=== PATIENT | male | born 1945 | race Caucasian/White ===

== ENCOUNTER 2023-07-08 10:35 | Inpatient (IN) | payer BC, OTHER ==
[~2023-07-08] VITALS: Ht 175.3 cm; Wt 110.2 kg
[2023-07-08 10:44] VITALS: PULSE 146; RESP 31; O2SAT 89
[2023-07-08] MEDS ORDERED: NITROGLYCERIN 0.4 MG SL TAB SL PRN ×2 (10:45→22:45)
[2023-07-08] MEDS: SODIUM CHLORIDE 0.9% 2,350 ML IV ONE (11:03)
[2023-07-08 11:21] LABS: Base Excess 3.1 mmol/L (-2.0-2.0)
[2023-07-08 11:31] LABS: Basophils # (auto) 0 10 ^3/uL (0-0.2); Basophils % (auto) 0.3 % (0.0-2.0); Eosinophils # (auto) 0.1 10 ^3/uL (0-0.8); Eosinophils % (auto) 0.5 % (0.0-7.0); Lymphocytes # (auto) 0.3 10 ^3/uL (0.4-5.4); Lymphocytes % (auto) 1.7 % (10.0-50.0); Mean Corpuscular Hemoglobin 29.8 pg (28.0-32.0); Mean Corpuscular Hgb Conc. 32.3 g/dL (32.0-36.0); Mean Corpuscular Volume 92.2 fL (80.0-100.0); Monocytes # (auto) 0.5 10 ^3/uL (0-1.3); Monocytes % (auto) 2.9 % (0.0-12.0); Neutrophils # (auto) 16.4 10 ^3/uL (1.6-8.6); Neutrophils % (auto) 94.6 % (37.0-80.0); Red Blood Cells 3.68 10^6/uL (4.5-5.90); Red Cell Distribution Width 15.3 % (11.8-14.3); White Blood Cell 17.3 10^3/uL (4.4-10.8)
[2023-07-08] MEDS: PHENYLEPHRINE IV 250 ML IV SCH (11:44)
[2023-07-08] MEDS: VANCOMYCIN 1GM/200ML 200 ML IV ONE (11:47)
[2023-07-08] MEDS ORDERED: CYCL-837 PO (11:49)
[2023-07-08] MEDS ORDERED: SIMV40TA18 PO (11:49)
[2023-07-08] MEDS ORDERED: METO25TA93 PO (11:49)
[2023-07-08] MEDS ORDERED: FAMO20TA10 PO (11:49)
[2023-07-08] MEDS ORDERED: ACET5SOL5 PO (11:49)
[2023-07-08] MEDS ORDERED: CLON0.1T PO (11:49)
[2023-07-08] MEDS ORDERED: LAMO200T34 PO (11:49)
[2023-07-08] MEDS ORDERED: AMLO1TAB23 PO (11:49)
[2023-07-08] MEDS ORDERED: FINA5TAB4 PO (11:49)
[2023-07-08] MEDS ORDERED: ESCI1TAB37 PO (11:49)
[2023-07-08] MEDS ORDERED: CHOL20007 PO (11:49)
[2023-07-08] MEDS ORDERED: PRED20TA2 PO (11:49)
[2023-07-08] MEDS ORDERED: ATOR40TA52 PO (11:49)
[2023-07-08] MEDS ORDERED: HYDR-4902 PO (11:49)
[2023-07-08] MEDS ORDERED: OLME20TA53 PO (11:49)
[2023-07-08] MEDS ORDERED: LINA5TAB PO (11:49)
[2023-07-08 11:52] LABS: Alanine Aminotransferase 28 U/L (7-40); Albumin 3.5 g/dL (3.2-4.8); Alkaline Phosphatase 63 U/L (46-116); Anion Gap 9 (5-15); Aspartate Aminotransferase 18 U/L (13-40); BUN/Creatinine Ratio 11.8 (10.0-20.0); Blood Urea Nitrogen 23 mg/dL (9-23); Calcium 8.9 mg/dL (8.5-10.1); Carbon Dioxide 25 mmol/L (20-30); Chloride 104 mmol/L (98-107); Glucose 218 mg/dL (74-106); Potassium 3.4 mmol/L (3.5-5.1); Sodium 138 mmol/L (136-145)
[2023-07-08 11:53] LABS: Creatine Kinase IFCC 48 U/L (46-171)
[2023-07-08 11:57] LABS: Urine Bacteria None Seen /hpf (None Seen)
[2023-07-08] MEDS ORDERED: ENOXAPARIN SOD 40 MG/0.4 ML SYRINGE SC SCH (11:58)
[2023-07-08 12:03] LABS: Urine Blood 1+ /uL (Negative); Urine Clarity Clear (Clear); Urine Color Light-Yellow (Yellow); Urine Protein, UAD 2+ (Negative); Urine Specific Gravity 1.009 (1.001-1.035); Urine Urobilinogen Normal (Negative); Urine WBC 2 /hpf (0 - 3); Urine pH 6.5 (5.0-9.0)
[2023-07-08 12:22] LABS: INR 1.12 (0.9-1.15); Prothrombin Time 11.8 sec (9.3-11.8)
[2023-07-08] MEDS: ACETAMINOPHEN 325 MG TAB PO PRN (12:43)
[2023-07-08] MEDS: PIPERACILLIN-TAZO 4.5GM 100 ML IV ONE (12:49)
[2023-07-08] MEDS ORDERED: PIPERACILLIN-TAZO 4.5GM 100 ML IV SCH (14:00)
[2023-07-08] MEDS: fentaNYL CITRATE 100 MCG/2 ML VL IV ONE (14:06)
[2023-07-08] MEDS: IOHEXOL 350 MG/ML 100ML IJ ONE (14:07)
[2023-07-08] MEDS: ONDANSETRON HCL 4 MG/2 ML VIAL IV ONE (17:25)
[2023-07-08] MEDS: HYDROmorphone HCL 2 MG/ML VL/or syr IV ONE (17:35)
[2023-07-08] MEDS: ACETAMINOPHEN 500 MG TAB PO ONE (20:02)
[2023-07-08] MEDS ORDERED: VANCOMYCIN 1GM/200ML 200 ML IV ONE (22:00)
[2023-07-08] MEDS ORDERED: ONDANSETRON HCL 4 MG/2 ML VIAL IV PRN (22:45)
[2023-07-08] MEDS ORDERED: MORPHINE SULFATE INJ 2 MG/ml SYRG IV PRN (22:45)
[2023-07-08] MEDS ORDERED: VANCOMYCIN PER PHARMACY 0 MG IV SCH (22:45)
[2023-07-08 23:06] LABS: Hemoglobin 10.1 g/dL (13.5-17.5); Mean Corpuscular Hemoglobin 29.8 pg (28.0-32.0); Mean Corpuscular Hgb Conc. 32.6 g/dL (32.0-36.0); Mean Corpuscular Volume 91.4 fL (80.0-100.0); Red Blood Cells 3.39 10^6/uL (4.5-5.90); Red Cell Distribution Width 15.7 % (11.8-14.3); White Blood Cell 22.4 10^3/uL (4.4-10.8)
[2023-07-08 23:09] LABS: Basophils % (manual) 0 (0.0-2.0); Blast Cells 0; Eosinophils % (manual) 0 (0-7); Metamyelocytes % 0; Myelocytes % 0; Promyelocytes % 0; Reactive Lymphocytes 0
[2023-07-08 23:24] LABS: Alanine Aminotransferase 26 U/L (7-40); Alkaline Phosphatase 57 U/L (46-116); Anion Gap 7 (5-15); Aspartate Aminotransferase 15 U/L (13-40); BUN/Creatinine Ratio 12.7 (10.0-20.0); Blood Urea Nitrogen 29 mg/dL (9-23); Calcium 8.3 mg/dL (8.7-10.4); Carbon Dioxide 26 mmol/L (20-30); Chloride 105 mmol/L (98-107); Glucose 258 mg/dL (74-106); Potassium 4.4 mmol/L (3.5-5.1); Sodium 138 mmol/L (136-145)
[2023-07-08 23:25] LABS: Albumin 3.3 g/dL (3.2-4.8); Bilirubin, Total 0.9 mg/dL (0.2-1.0); Total Protein 5.8 g/dL (5.7-8.2)
[2023-07-08 23:43] LABS: Band Neutrophils % (manual) 14; Lymphocytes % (manual) 1 (10.0-50.0); Monocytes % (manual) 2 (0-12); Platelet Estimate Adequate; RBC Morphology Normal
[2023-07-09] VITALS (17 sets, daily range): BP systolic 112–152; BP diastolic 54–84; PULSE 99–108; RESP 10–21; TEMP 98.4–100.2; O2SAT 93–98
[2023-07-09] MEDS: SODIUM CHLORIDE 0.9% 1,000 ML IV SCH ×2 (00:23→14:50)
[2023-07-09] MEDS: MORPHINE SULFATE INJ 2 MG/ml SYRG IV PRN (03:38)
[2023-07-09 06:13] LABS: Hematocrit 30.8 % (41.0-53.0); Hemoglobin 10.2 g/dL (13.5-17.5); Mean Corpuscular Hemoglobin 30.5 pg (28.0-32.0); Mean Corpuscular Hgb Conc. 33.1 g/dL (32.0-36.0); Mean Corpuscular Volume 92.1 fL (80.0-100.0); Red Blood Cells 3.34 10^6/uL (4.5-5.90); Red Cell Distribution Width 16.3 % (11.8-14.3); White Blood Cell 20.8 10^3/uL (4.4-10.8)
[2023-07-09 06:17] LABS: Basophils % (manual) 0 (0.0-2.0); Blast Cells 0; Eosinophils % (manual) 0 (0-7); Metamyelocytes % 0; Myelocytes % 0; Promyelocytes % 0; Reactive Lymphocytes 0
[2023-07-09] MEDS: PIPERACILLIN-TAZOB 3.375GM 100 ML IV SCH (06:20)
[2023-07-09 06:33] LABS: Alanine Aminotransferase 24 U/L (7-40); Albumin 3.2 g/dL (3.2-4.8); Alkaline Phosphatase 60 U/L (46-116); Anion Gap 8 (5-15); Aspartate Aminotransferase 16 U/L (13-40); BUN/Creatinine Ratio 13.1 (10.0-20.0); Bilirubin, Total 0.6 mg/dL (0.2-1.0); Blood Urea Nitrogen 33 mg/dL (9-23); Calcium 8.2 mg/dL (8.7-10.4); Carbon Dioxide 26 mmol/L (20-30); Chloride 106 mmol/L (98-107); Glucose 192 mg/dL (74-106); Sodium 140 mmol/L (136-145)
[2023-07-09 06:34] LABS: Total Protein 5.7 g/dL (5.7-8.2)
[2023-07-09 07:32] LABS: Band Neutrophils % (manual) 11; Lymphocytes % (manual) 4 (10.0-50.0); Monocytes % (manual) 3 (0-12); Platelet Estimate Adequate
[2023-07-09] MEDS: SODIUM CHLORIDE 0.9% 1,000 ML IV ONE (12:00)
[2023-07-09] MEDS: VANCOMYCIN 1GM/200ML 200 ML IV SCH (14:50)
[2023-07-09] MEDS: PANTOPRAZOLE 40 MG/10 ML VIAL INJ IV ONE (14:51)
[2023-07-10] VITALS (21 sets, daily range): BP systolic 104–169; BP diastolic 52–81; PULSE 95–111; RESP 9–20; TEMP 98–98.5; O2SAT 91–100
[2023-07-10 05:47] LABS: Basophils # (auto) 0.1 10 ^3/uL (0-0.2); Basophils % (auto) 0.3 % (0.0-2.0); Eosinophils # (auto) 0.5 10 ^3/uL (0-0.8); Eosinophils % (auto) 2.6 % (0.0-7.0); Hematocrit 31.8 % (41.0-53.0); Hemoglobin 10.4 g/dL (13.5-17.5); Lymphocytes # (auto) 0.2 10 ^3/uL (0.4-5.4); Lymphocytes % (auto) 1.1 % (10.0-50.0); Mean Corpuscular Hemoglobin 30.9 pg (28.0-32.0); Mean Corpuscular Hgb Conc. 32.7 g/dL (32.0-36.0); Mean Corpuscular Volume 94.3 fL (80.0-100.0); Monocytes # (auto) 0.3 10 ^3/uL (0-1.3); Monocytes % (auto) 1.4 % (0.0-12.0); Neutrophils # (auto) 18.1 10 ^3/uL (1.6-8.6); Neutrophils % (auto) 94.6 % (37.0-80.0); Nucleated Red Blood Cells % 0.1 %; Red Blood Cells 3.37 10^6/uL (4.5-5.90); Red Cell Distribution Width 16.4 % (11.8-14.3); White Blood Cell 19.2 10^3/uL (4.4-10.8)
[2023-07-10 05:59] LABS: Alanine Aminotransferase 17 U/L (7-40); Albumin 3.2 g/dL (3.2-4.8); Alkaline Phosphatase 70 U/L (46-116); Anion Gap 9 (5-15); Aspartate Aminotransferase 10 U/L (13-40); BUN/Creatinine Ratio 14.8 (10.0-20.0); Bilirubin, Total 0.7 mg/dL (0.2-1.0); Blood Urea Nitrogen 34 mg/dL (9-23); Calcium 8.2 mg/dL (8.7-10.4); Carbon Dioxide 26 mmol/L (20-30); Chloride 108 mmol/L (98-107); Glucose 148 mg/dL (74-106); Magnesium 1.6 mg/dL (1.6-2.6); Potassium 3.8 mmol/L (3.5-5.1); Sodium 143 mmol/L (136-145)
[2023-07-10] MEDS: PANTOPRAZOLE 40 MG/10 ML VIAL INJ IV SCH (10:41)
[2023-07-10] MEDS: MEROPENEM 1GM IVPB 50 ML IV ONE (11:40)
[2023-07-10 13:27] LABS: Erythrocyte Sedimentation Rate 111 mm/hr (0-20)
[2023-07-10] MEDS: VANCOMYCIN 1GM/200ML 200 ML IV SCH (13:52)
[2023-07-10] MEDS: MORPHINE SULFATE INJ 2 MG/ml SYRG IV PRN (17:24)
[2023-07-10] MEDS: MEROPENEM 1GM IVPB 50 ML IV SCH (22:15)
[2023-07-11] VITALS (15 sets, daily range): BP systolic 149–198; BP diastolic 67–85; PULSE 90–106; RESP 11–18; TEMP 98.1–99.7; O2SAT 86–97
[2023-07-11] MEDS: dilTIAZem 25 MG/5 ML VIAL IV ONE (04:19)
[2023-07-11 05:15] LABS: Basophils # (auto) 0.1 10 ^3/uL (0-0.2); Basophils % (auto) 0.3 % (0.0-2.0); Eosinophils # (auto) 0.7 10 ^3/uL (0-0.8); Eosinophils % (auto) 4.6 % (0.0-7.0); Hematocrit 28.9 % (41.0-53.0); Hemoglobin 9.5 g/dL (13.5-17.5); Lymphocytes # (auto) 0.3 10 ^3/uL (0.4-5.4); Lymphocytes % (auto) 2.3 % (10.0-50.0); Mean Corpuscular Hemoglobin 30.6 pg (28.0-32.0); Mean Corpuscular Hgb Conc. 32.9 g/dL (32.0-36.0); Mean Corpuscular Volume 92.9 fL (80.0-100.0); Monocytes # (auto) 0.3 10 ^3/uL (0-1.3); Monocytes % (auto) 1.9 % (0.0-12.0); Neutrophils # (auto) 13.6 10 ^3/uL (1.6-8.6); Neutrophils % (auto) 90.9 % (37.0-80.0); Red Blood Cells 3.11 10^6/uL (4.5-5.90)
[2023-07-11 05:29] LABS: Alanine Aminotransferase 16 U/L (7-40); Alkaline Phosphatase 69 U/L (46-116); Anion Gap 6 (5-15); Aspartate Aminotransferase 11 U/L (13-40); Blood Urea Nitrogen 34 mg/dL (9-23); Calcium 8.7 mg/dL (8.5-10.1); Carbon Dioxide 27 mmol/L (20-30); Chloride 110 mmol/L (98-107); Glucose 134 mg/dL (74-106); Magnesium 1.7 mg/dL (1.6-2.6); Potassium 3.4 mmol/L (3.5-5.1); Sodium 143 mmol/L (136-145)
[2023-07-11 05:30] LABS: Albumin 3.3 g/dL (3.2-4.8); Bilirubin, Total 0.5 mg/dL (0.2-1.0); Total Protein 5.9 g/dL (5.7-8.2)
[2023-07-11 07:06] LABS: Complement C3 163 mg/dL (82-167)
[2023-07-11] MEDS: hydrALAZINE HCL 20 MG/ML VL IV PRN (11:16)
[2023-07-11] MEDS: POTASSIUM CHL 20MEQ/100ML 100 ML IV ONE (11:16)
[2023-07-11 11:26] LABS: Basophils # (auto) 0 10 ^3/uL (0-0.2); Basophils % (auto) 0.3 % (0.0-2.0); Eosinophils # (auto) 0.7 10 ^3/uL (0-0.8); Eosinophils % (auto) 5.4 % (0.0-7.0); Hematocrit 29.2 % (41.0-53.0); Hemoglobin 9.3 g/dL (13.5-17.5); Lymphocytes # (auto) 0.3 10 ^3/uL (0.4-5.4); Lymphocytes % (auto) 2.8 % (10.0-50.0); Mean Corpuscular Hemoglobin 30.1 pg (28.0-32.0); Mean Corpuscular Hgb Conc. 31.9 g/dL (32.0-36.0); Mean Corpuscular Volume 94.4 fL (80.0-100.0); Monocytes # (auto) 0.3 10 ^3/uL (0-1.3); Monocytes % (auto) 2.4 % (0.0-12.0); Neutrophils # (auto) 11.2 10 ^3/uL (1.6-8.6); Neutrophils % (auto) 89.1 % (37.0-80.0); Nucleated Red Blood Cells % 0.1 %; Red Cell Distribution Width 15.9 % (11.8-14.3); White Blood Cell 12.6 10^3/uL (4.4-10.8)
[2023-07-11 11:36] LABS: Alanine Aminotransferase 16 U/L (7-40); Albumin 3.2 g/dL (3.2-4.8); Alkaline Phosphatase 66 U/L (46-116); Anion Gap 7 (5-15); Aspartate Aminotransferase 11 U/L (13-40); Blood Urea Nitrogen 27 mg/dL (9-23); Calcium 8.2 mg/dL (8.5-10.1); Carbon Dioxide 26 mmol/L (20-30); Chloride 111 mmol/L (98-107); Glucose 125 mg/dL (74-106); Potassium 3.2 mmol/L (3.5-5.1); Sodium 144 mmol/L (136-145)
[2023-07-11 11:37] LABS: Bilirubin, Total 0.6 mg/dL (0.2-1.0); Total Protein 5.6 g/dL (5.7-8.2)
[2023-07-11 15:49] LABS: Protein, Urine 200.9 mg/dL (0.0-11.9)
[2023-07-11 15:52] LABS: Creatinine, Urine 36.82 mg/dL (30.0-125.0); Urine Protein/Creatinine Ratio 5.46
[2023-07-11] MEDS: MORPHINE SULFATE 4 MG/ML SYR/VIAL IV PRN (23:21)
[2023-07-12] VITALS (8 sets, daily range): BP systolic 144–171; BP diastolic 69–89; PULSE 100–118; RESP 18–22; TEMP 97.5–98.8; O2SAT 96–98
[2023-07-12 10:26] LABS: Hematocrit 35.3 % (41.0-53.0); Hemoglobin 11.5 g/dL (13.5-17.5); Mean Corpuscular Hemoglobin 30.2 pg (28.0-32.0); Mean Corpuscular Hgb Conc. 32.5 g/dL (32.0-36.0); Mean Corpuscular Volume 92.9 fL (80.0-100.0); Red Blood Cells 3.81 10^6/uL (4.5-5.90); Red Cell Distribution Width 15.7 % (11.8-14.3); White Blood Cell 13.7 10^3/uL (4.4-10.8)
[2023-07-12 10:33] LABS: Basophils % (manual) 0 (0.0-2.0); Blast Cells 0; Metamyelocytes % 0; Myelocytes % 0; Promyelocytes % 0; Reactive Lymphocytes 0
[2023-07-12 10:40] LABS: Eosinophils % (manual) 5 (0-7); Lymphocytes % (manual) 4 (10.0-50.0); Monocytes % (manual) 6 (0-12)
[2023-07-12 10:41] LABS: Anisocytosis Slight; Band Neutrophils % (manual) 4; Platelet Estimate Adequate
[2023-07-12 10:57] LABS: Alanine Aminotransferase 15 U/L (7-40); Albumin 3.5 g/dL (3.2-4.8); Alkaline Phosphatase 72 U/L (46-116); Anion Gap 10 (5-15); Aspartate Aminotransferase 15 U/L (13-40); BUN/Creatinine Ratio 13.6 (10.0-20.0); Bilirubin, Total 0.8 mg/dL (0.2-1.0); Blood Urea Nitrogen 19 mg/dL (9-23); Calcium 8.8 mg/dL (8.5-10.1); Carbon Dioxide 23 mmol/L (20-30); Chloride 106 mmol/L (98-107); Glucose 114 mg/dL (74-106); Sodium 139 mmol/L (136-145); Total Protein 6.4 g/dL (5.7-8.2)
[2023-07-12 11:21] LABS: Magnesium 1.6 mg/dL (1.6-2.6)
[2023-07-12] MEDS: MAGNESIUM SULFATE 1GM/100ML 100 ML IV SCH (13:30)
[2023-07-12] MEDS: POTASSIUM CHL 20MEQ/100ML 100 ML IV SCH (13:38)
[2023-07-12 18:06] LABS: Antimyeloperoxidase (MPO) Ab <0.2 units (0.0-0.9); Antiproteinase 3 (PR-3) Ab <0.2 units (0.0-0.9)
[2023-07-12] MEDS: MEROPENEM 1GM IVPB 50 ML IV SCH (18:09)
[2023-07-13] VITALS (7 sets, daily range): BP systolic 117–179; BP diastolic 56–95; PULSE 95–120; RESP 18–22; TEMP 97.6–98; O2SAT 94–99
[2023-07-13 06:57] LABS: Alanine Aminotransferase 15 U/L (7-40); Albumin 3.1 g/dL (3.2-4.8); Alkaline Phosphatase 61 U/L (46-116); Anion Gap 11 (5-15); Aspartate Aminotransferase 15 U/L (13-40); BUN/Creatinine Ratio 15.9 (10.0-20.0); Bilirubin, Total 0.8 mg/dL (0.2-1.0); Blood Urea Nitrogen 21 mg/dL (9-23); Calcium 8.4 mg/dL (8.7-10.4); Carbon Dioxide 23 mmol/L (20-30); Chloride 105 mmol/L (98-107); Glucose 130 mg/dL (74-106); Magnesium 1.7 mg/dL (1.6-2.6); Sodium 139 mmol/L (136-145); Total Protein 5.9 g/dL (5.7-8.2)
[2023-07-13 06:58] LABS: Hematocrit 33.2 % (41.0-53.0); Hemoglobin 11.2 g/dL (13.5-17.5); Mean Corpuscular Hemoglobin 30.6 pg (28.0-32.0); Mean Corpuscular Hgb Conc. 33.6 g/dL (32.0-36.0); Mean Corpuscular Volume 90.9 fL (80.0-100.0); Red Blood Cells 3.65 10^6/uL (4.5-5.90); Red Cell Distribution Width 15.7 % (11.8-14.3); White Blood Cell 10.3 10^3/uL (4.4-10.8)
[2023-07-13 07:19] LABS: Basophils % (manual) 0 (0.0-2.0); Blast Cells 0; Myelocytes % 0; Promyelocytes % 0; Reactive Lymphocytes 0
[2023-07-13 08:17] LABS: Band Neutrophils % (manual) 8; Eosinophils % (manual) 4 (0-7); Lymphocytes % (manual) 11 (10.0-50.0); Metamyelocytes % 1; Monocytes % (manual) 5 (0-12)
[2023-07-13 08:18] LABS: Platelet Estimate Adequate
[2023-07-13] MEDS ORDERED: ENOXAPARIN SOD 40 MG/0.4 ML SYRINGE SC ONE (10:15)
[2023-07-13] MEDS: POTASSIUM CHL 20MEQ/100ML 100 ML IV SCH (13:00)
[2023-07-13 14:06] LABS: Cytoplasmic (C-ANCA) <1:20 titer (Neg:<1:20); Perinuclear (P-ANCA) <1:20 titer (Neg:<1:20)
[2023-07-13] MEDS: MELATONIN 5 MG TAB PO SCH (21:53)
[2023-07-14] VITALS (7 sets, daily range): BP systolic 110–176; BP diastolic 62–80; PULSE 101–121; RESP 18–21; TEMP 97.7–98.9; O2SAT 94–98
[2023-07-14 05:57] LABS: Hematocrit 31.2 % (41.0-53.0); Hemoglobin 10.6 g/dL (13.5-17.5); Mean Corpuscular Hemoglobin 31.5 pg (28.0-32.0); Mean Corpuscular Hgb Conc. 34.1 g/dL (32.0-36.0); Mean Corpuscular Volume 92.3 fL (80.0-100.0); Red Blood Cells 3.38 10^6/uL (4.5-5.90); Red Cell Distribution Width 15.5 % (11.8-14.3); White Blood Cell 9.8 10^3/uL (4.4-10.8)
[2023-07-14 05:59] LABS: Basophils % (manual) 0 (0.0-2.0); Blast Cells 0; Metamyelocytes % 0; Promyelocytes % 0; Reactive Lymphocytes 0
[2023-07-14 06:12] LABS: Alanine Aminotransferase 14 U/L (7-40); Alkaline Phosphatase 55 U/L (46-116); Anion Gap 13 (5-15); Blood Urea Nitrogen 17 mg/dL (9-23); Calcium 8.6 mg/dL (8.7-10.4); Carbon Dioxide 20 mmol/L (20-30); Chloride 107 mmol/L (98-107); Glucose 136 mg/dL (74-106); Magnesium 1.6 mg/dL (1.6-2.6); Potassium 3.1 mmol/L (3.5-5.1); Sodium 140 mmol/L (136-145)
[2023-07-14 06:13] LABS: Albumin 2.8 g/dL (3.2-4.8); Aspartate Aminotransferase 17 U/L (13-40); Bilirubin, Total 0.7 mg/dL (0.2-1.0); Total Protein 5.6 g/dL (5.7-8.2)
[2023-07-14 06:25] LABS: Band Neutrophils % (manual) 3; Eosinophils % (manual) 5 (0-7); Lymphocytes % (manual) 10 (10.0-50.0); Monocytes % (manual) 8 (0-12); Myelocytes % 1; Platelet Estimate Adequate
[2023-07-14] MEDS: POTASSIUM CHL 20MEQ/100ML 100 ML IV SCH (10:00)
[2023-07-14] MEDS ORDERED: ENOXAPARIN SOD 40 MG/0.4 ML SYRINGE SC SCH (10:00)
[2023-07-14] MEDS: MORPHINE SULFATE 4 MG/ML SYR/VIAL IV PRN (11:56)
[2023-07-14] MEDS: MAGNESIUM SULFATE 1GM/100ML 100 ML IV SCH (11:58)
[2023-07-14] MEDS ORDERED: POTASSIUM CHL 20MEQ/100ML 100 ML IV SCH (12:00)
[2023-07-15] VITALS (8 sets, daily range): BP systolic 135–171; BP diastolic 55–78; PULSE 103–115; RESP 17–22; TEMP 97.4–99.9; O2SAT 91–96
[2023-07-15 05:34] LABS: Hematocrit 30.3 % (41.0-53.0); Hemoglobin 10.2 g/dL (13.5-17.5); Mean Corpuscular Hemoglobin 30.8 pg (28.0-32.0); Mean Corpuscular Hgb Conc. 33.6 g/dL (32.0-36.0); Mean Corpuscular Volume 91.6 fL (80.0-100.0); Red Cell Distribution Width 15.6 % (11.8-14.3); White Blood Cell 8.5 10^3/uL (4.4-10.8)
[2023-07-15 05:46] LABS: Basophils % (manual) 0 (0.0-2.0); Blast Cells 0; Metamyelocytes % 0; Myelocytes % 0; Promyelocytes % 0
[2023-07-15 05:49] LABS: Alanine Aminotransferase 14 U/L (7-40); Albumin 2.8 g/dL (3.2-4.8); Alkaline Phosphatase 54 U/L (46-116); Anion Gap 9 (5-15); Aspartate Aminotransferase 18 U/L (13-40); BUN/Creatinine Ratio 13.3 (10.0-20.0); Blood Urea Nitrogen 16 mg/dL (9-23); Calcium 8.4 mg/dL (8.7-10.4); Carbon Dioxide 22 mmol/L (20-30); Chloride 107 mmol/L (98-107); Glucose 122 mg/dL (74-106); Magnesium 1.9 mg/dL (1.6-2.6); Potassium 3.1 mmol/L (3.5-5.1); Sodium 138 mmol/L (136-145)
[2023-07-15 05:50] LABS: Bilirubin, Total 0.8 mg/dL (0.2-1.0); Total Protein 5.5 g/dL (5.7-8.2)
[2023-07-15 07:26] LABS: Band Neutrophils % (manual) 3; Eosinophils % (manual) 7 (0-7); Lymphocytes % (manual) 9 (10.0-50.0); Monocytes % (manual) 4 (0-12); Reactive Lymphocytes 2
[2023-07-15 07:27] LABS: Anisocytosis Slight; Platelet Estimate Adequate
[2023-07-15] MEDS: POTASSIUM CHL 20MEQ/100ML 100 ML IV ONE (09:30)
[2023-07-15 10:57] LABS: INR 1.13 (0.9-1.15); Partial Thromboplastin Time 40.6 SEC (24.5-34.5); Prothrombin Time 11.9 sec (9.3-11.8)
[2023-07-15] MEDS: SOD CHL 0.9%/ KCL 20MEQ 1,000 ML IV SCH (14:29)
[2023-07-15 17:03] LABS: Hematocrit 34.3 % (41.0-53.0); Mean Corpuscular Hemoglobin 30.4 pg (28.0-32.0); Mean Corpuscular Hgb Conc. 32.2 g/dL (32.0-36.0); Mean Corpuscular Volume 94.6 fL (80.0-100.0); Red Blood Cells 3.63 10^6/uL (4.5-5.90); Red Cell Distribution Width 15.7 % (11.8-14.3); White Blood Cell 10.3 10^3/uL (4.4-10.8)
[2023-07-15 17:15] LABS: Chloride 106 mmol/L (98-107); Potassium 3.1 mmol/L (3.5-5.1); Sodium 137 mmol/L (136-145)
[2023-07-15 17:16] LABS: Anion Gap 8 (5-15); Calcium 8.5 mg/dL (8.5-10.1); Carbon Dioxide 23 mmol/L (20-30)
[2023-07-15 17:20] LABS: Basophils % (manual) 0 (0.0-2.0); Blast Cells 0; Promyelocytes % 0; Reactive Lymphocytes 0
[2023-07-15 17:21] LABS: Blood Urea Nitrogen 12 mg/dL (9-23); Glucose 117 mg/dL (74-106)
[2023-07-15 17:51] LABS: Anisocytosis Slight; Band Neutrophils % (manual) 5; Eosinophils % (manual) 4 (0-7); Lymphocytes % (manual) 6 (10.0-50.0); Macrocytosis Slight; Metamyelocytes % 2; Monocytes % (manual) 7 (0-12); Myelocytes % 2; Platelet Estimate Adequate
[2023-07-15] MEDS: HYDROmorphone HCL 2 MG/ML VL/or syr IV PRN (20:42)
[2023-07-16 08:00] VITALS: PULSE 108; PULSE 136; RESP 17; O2SAT 94
[2023-07-16] MEDS: GASTROGRAFIN 120 ML SOL ONE (08:56)
[2023-07-16 09:00] VITALS: BP 152/75; PULSE 107; RESP 20; TEMP 98.1; O2SAT 94
[2023-07-16 13:00] VITALS: BP 147/62; PULSE 66; RESP 20; TEMP 98.2; O2SAT 92
[2023-07-16 14:07] LABS: Hematocrit 31.3 % (41.0-53.0); Hemoglobin 11.1 g/dL (13.5-17.5); Mean Corpuscular Hemoglobin 32.3 pg (28.0-32.0); Mean Corpuscular Hgb Conc. 35.5 g/dL (32.0-36.0); Mean Corpuscular Volume 90.8 fL (80.0-100.0); Red Blood Cells 3.44 10^6/uL (4.5-5.90); Red Cell Distribution Width 15.3 % (11.8-14.3); White Blood Cell 12.2 10^3/uL (4.4-10.8)
[2023-07-16 14:11] LABS: Basophils % (manual) 0 (0.0-2.0); Blast Cells 0; Promyelocytes % 0; Reactive Lymphocytes 0
[2023-07-16 14:17] LABS: Alanine Aminotransferase 25 U/L (7-40); Albumin 3.2 g/dL (3.2-4.8); Alkaline Phosphatase 70 U/L (46-116); Anion Gap 11 (5-15); Aspartate Aminotransferase 38 U/L (13-40); BUN/Creatinine Ratio 12.4 (10.0-20.0); Blood Urea Nitrogen 15 mg/dL (9-23); Calcium 9.1 mg/dL (8.5-10.1); Carbon Dioxide 26 mmol/L (20-30); Chloride 103 mmol/L (98-107); Glucose 124 mg/dL (74-106); Magnesium 1.6 mg/dL (1.6-2.6); Potassium 2.9 mmol/L (3.5-5.1); Sodium 140 mmol/L (136-145)
[2023-07-16 14:18] LABS: Total Protein 6.4 g/dL (5.7-8.2)
[2023-07-16 14:19] LABS: Band Neutrophils % (manual) 4; Eosinophils % (manual) 5 (0-7); Lymphocytes % (manual) 9 (10.0-50.0); Metamyelocytes % 1; Monocytes % (manual) 7 (0-12); Myelocytes % 1
[2023-07-16 14:20] LABS: Anisocytosis Slight
[2023-07-16 14:21] LABS: Platelet Estimate Adequate
[2023-07-16] MEDS: VANCOMYCIN 1GM/200ML 200 ML IV SCH (15:18)
[2023-07-16 17:00] VITALS: BP 125/68; PULSE 107; RESP 20; TEMP 98.2; O2SAT 95
[2023-07-16 20:00] VITALS: PULSE 108
[2023-07-16 21:37] VITALS: BP 167/79; PULSE 120; RESP 19; TEMP 98.6; O2SAT 92
[2023-07-17] VITALS (13 sets, daily range): BP systolic 104–161; BP diastolic 59–85; PULSE 68–127; RESP 15–21; TEMP 97.3–98.6; O2SAT 91–99
[2023-07-17 06:08] LABS: Hematocrit 29.3 % (41.0-53.0); Hemoglobin 9.6 g/dL (13.5-17.5); Mean Corpuscular Hemoglobin 29.9 pg (28.0-32.0); Mean Corpuscular Hgb Conc. 32.9 g/dL (32.0-36.0); Mean Corpuscular Volume 90.8 fL (80.0-100.0); Red Blood Cells 3.22 10^6/uL (4.5-5.90); Red Cell Distribution Width 15.3 % (11.8-14.3); White Blood Cell 11.2 10^3/uL (4.4-10.8)
[2023-07-17 06:25] LABS: Band Neutrophils % (manual) 0; Basophils % (manual) 0 (0.0-2.0); Blast Cells 0; Metamyelocytes % 0; Promyelocytes % 0; Reactive Lymphocytes 0
[2023-07-17 06:30] LABS: Alanine Aminotransferase 25 U/L (7-40); Albumin 2.7 g/dL (3.2-4.8); Alkaline Phosphatase 60 U/L (46-116); Anion Gap 12 (5-15); Aspartate Aminotransferase 34 U/L (13-40); Bilirubin, Total 0.8 mg/dL (0.2-1.0); Blood Urea Nitrogen 14 mg/dL (9-23); Calcium 8.5 mg/dL (8.7-10.4); Carbon Dioxide 24 mmol/L (20-30); Chloride 101 mmol/L (98-107); Glucose 117 mg/dL (74-106); Magnesium 1.5 mg/dL (1.6-2.6); Potassium 2.7 mmol/L (3.5-5.1); Sodium 137 mmol/L (136-145)
[2023-07-17 06:31] LABS: Total Protein 5.6 g/dL (5.7-8.2)
[2023-07-17 08:32] LABS: Eosinophils % (manual) 1 (0-7); Lymphocytes % (manual) 7 (10.0-50.0); Monocytes % (manual) 4 (0-12); Myelocytes % 1; Platelet Estimate Adequate
[2023-07-17] MEDS: MAGNESIUM SULFATE 1GM/100ML 100 ML IV SCH (10:13)
[2023-07-17] MEDS ORDERED: LIDOCAINE 2%HCL (LOCAL ANESTH.) INJ 20ML MDV ONE (12:56)
[2023-07-17] MEDS ORDERED: fentaNYL CITRATE 100 MCG/2 ML VL ONE (13:05)
[2023-07-17] MEDS ORDERED: MIDAZOLAM HCL 2MG/2ML 2ml VIAL (1mg/ml) ONE (13:06)
[2023-07-17] MEDS ORDERED: HEPARIN SODIUM (PORCINE) 5000 UNITS/ML 1ML VIAL ONE (13:39)
[2023-07-17] MEDS ORDERED: MAGNESIUM SULFATE 1GM/100ML 100 ML IV ONE (16:09)
[2023-07-17] MEDS: POTASSIUM CHL 20MEQ/100ML 100 ML IV ONE (17:20)
[2023-07-18] VITALS (8 sets, daily range): BP systolic 126–163; BP diastolic 66–88; PULSE 84–122; RESP 18–21; TEMP 97.4–99.3; O2SAT 91–98
[2023-07-18 06:34] LABS: Basophils # (auto) 0.1 10 ^3/uL (0-0.2); Basophils % (auto) 0.8 % (0.0-2.0); Eosinophils # (auto) 0.2 10 ^3/uL (0-0.8); Eosinophils % (auto) 3.3 % (0.0-7.0); Hematocrit 26.9 % (41.0-53.0); Hemoglobin 9.1 g/dL (13.5-17.5); Lymphocytes # (auto) 0.7 10 ^3/uL (0.4-5.4); Lymphocytes % (auto) 9.9 % (10.0-50.0); Mean Corpuscular Hemoglobin 30.9 pg (28.0-32.0); Mean Corpuscular Hgb Conc. 33.9 g/dL (32.0-36.0); Mean Corpuscular Volume 90.9 fL (80.0-100.0); Monocytes # (auto) 0.5 10 ^3/uL (0-1.3); Monocytes % (auto) 6.9 % (0.0-12.0); Neutrophils # (auto) 5.8 10 ^3/uL (1.6-8.6); Neutrophils % (auto) 79.1 % (37.0-80.0); Nucleated Red Blood Cells % 0.1 %; Red Blood Cells 2.96 10^6/uL (4.5-5.90); Red Cell Distribution Width 15.3 % (11.8-14.3); White Blood Cell 7.3 10^3/uL (4.4-10.8)
[2023-07-18 06:37] LABS: Alanine Aminotransferase 26 U/L (7-40); Albumin 2.6 g/dL (3.2-4.8); Alkaline Phosphatase 58 U/L (46-116); Anion Gap 5 (5-15); Aspartate Aminotransferase 31 U/L (13-40); BUN/Creatinine Ratio 10.4 (10.0-20.0); Bilirubin, Total 0.6 mg/dL (0.2-1.0); Blood Urea Nitrogen 12 mg/dL (9-23); Calcium 8.3 mg/dL (8.7-10.4); Carbon Dioxide 27 mmol/L (20-30); Chloride 104 mmol/L (98-107); Glucose 147 mg/dL (74-106); Magnesium 1.7 mg/dL (1.6-2.6); Potassium 2.7 mmol/L (3.5-5.1); Sodium 136 mmol/L (136-145); Total Protein 5.5 g/dL (5.7-8.2)
[2023-07-18] MEDS: SOD CHL 0.9%/ KCL 40MEQ 1,000 ML IV SCH (09:45)
[2023-07-18] MEDS: MAGNESIUM OXIDE 400 MG TAB PO SCH (12:38)
[2023-07-18] MEDS: POTASSIUM CHL 20 Meq TABLET PO ONE (12:38)
[2023-07-19 05:00] VITALS: BP 153/75; PULSE 119; RESP 20; TEMP 98.3; O2SAT 92
[2023-07-19 06:06] LABS: Basophils # (auto) 0.1 10 ^3/uL (0-0.2); Basophils % (auto) 1.1 % (0.0-2.0); Eosinophils # (auto) 0.3 10 ^3/uL (0-0.8); Hematocrit 29.4 % (41.0-53.0); Hemoglobin 9.7 g/dL (13.5-17.5); Lymphocytes # (auto) 0.8 10 ^3/uL (0.4-5.4); Lymphocytes % (auto) 11.6 % (10.0-50.0); Mean Corpuscular Hemoglobin 30.6 pg (28.0-32.0); Mean Corpuscular Hgb Conc. 33.1 g/dL (32.0-36.0); Mean Corpuscular Volume 92.4 fL (80.0-100.0); Monocytes # (auto) 0.5 10 ^3/uL (0-1.3); Monocytes % (auto) 7.3 % (0.0-12.0); Neutrophils # (auto) 5.3 10 ^3/uL (1.6-8.6); Red Blood Cells 3.18 10^6/uL (4.5-5.90)
[2023-07-19 06:25] LABS: Alanine Aminotransferase 25 U/L (7-40); Albumin 2.9 g/dL (3.2-4.8); Alkaline Phosphatase 67 U/L (46-116); Anion Gap 7 (5-15); Aspartate Aminotransferase 26 U/L (13-40); BUN/Creatinine Ratio 8.3 (10.0-20.0); Blood Urea Nitrogen 10 mg/dL (9-23); Calcium 8.5 mg/dL (8.5-10.1); Carbon Dioxide 25 mmol/L (20-30); Chloride 107 mmol/L (98-107); Glucose 154 mg/dL (74-106); Magnesium 1.6 mg/dL (1.6-2.6); Potassium 3.2 mmol/L (3.5-5.1); Sodium 139 mmol/L (136-145)
[2023-07-19 06:26] LABS: Bilirubin, Total 0.6 mg/dL (0.2-1.0); Total Protein 5.9 g/dL (5.7-8.2)
[2023-07-19 08:00] VITALS: PULSE 108
[2023-07-19 09:00] VITALS: BP 179/84; PULSE 124; RESP 18; TEMP 98.3; O2SAT 93
[2023-07-19] MEDS: POTASSIUM CHL 20 Meq TABLET PO ONE (10:30)
[2023-07-19] MEDS: VANCOMYCIN 1GM/200ML 200 ML IV SCH (11:00)
[2023-07-19 13:00] VITALS: BP 153/73; PULSE 109; RESP 18; TEMP 98.9; O2SAT 92
[2023-07-19 15:18] VITALS: BP 143/78; PULSE 109; RESP 18
== END 2023-07-19 16:21 | disposition home or self-care (01) | DRG 871 ==
LOC: EDBD 10:35 → ER 10:35 → TELE 22:45 → DOU IN ICU 07-09 06:18 → TELE-CENTR 07-11 23:41
PROVIDERS: ADMIT Nurse Practitioner; ATTEND Internal Medicine Geriatric Medicine
PROC: 06JYXZZ Inspection of Lower Vein, External Approach (ICD-10-PCS; principal; 2023-07-15)
PROC: 0JH63XZ Insertion of Tunneled Vascular Access Device into Chest Subcutaneous Tissue and Fascia, Percutaneous Approach (ICD-10-PCS; 2023-07-17)
PROC: 02HV33Z Insertion of Infusion Device into Superior Vena Cava, Percutaneous Approach (ICD-10-PCS; 2023-07-17)
PROC: B518ZZA Fluoroscopy of Superior Vena Cava, Guidance (ICD-10-PCS; 2023-07-17)
PROC: B548ZZA Ultrasonography of Superior Vena Cava, Guidance (ICD-10-PCS; 2023-07-17)
DX: A41.9 Sepsis, unspecified organism (principal); G93.41 Metabolic encephalopathy; K63.1 Perforation of intestine (nontraumatic); N17.0 Acute kidney failure with tubular necrosis; J96.01 Acute respiratory failure with hypoxia; N13.2 Hydronephrosis with renal and ureteral calculous obstruction; I13.0 Hypertensive heart and chronic kidney disease with heart failure and stage 1 through stage 4 chronic kidney disease, or unspecified chronic kidney disease; K50.90 Crohn's disease, unspecified, without complications; I50.9 Heart failure, unspecified; R65.20 Severe sepsis without septic shock; E66.01 Morbid (severe) obesity due to excess calories; E78.5 Hyperlipidemia, unspecified; E87.6 Hypokalemia; M35.3 Polymyalgia rheumatica; N18.30 Chronic kidney disease, stage 3 unspecified; E11.22 Type 2 diabetes mellitus with diabetic chronic kidney disease; I45.10 Unspecified right bundle-branch block; Z79.899 Other long term (current) drug therapy; Z79.1 Long term (current) use of non-steroidal anti-inflammatories (NSAID); Z87.442 Personal history of urinary calculi; Z90.49 Acquired absence of other specified parts of digestive tract; Z79.52 Long term (current) use of systemic steroids; Z68.35 Body mass index [BMI] 35.0-35.9, adult
CPT/HCPCS: 36415; 36558; 36600; 70450; 71045; 71260; 73200; 74176; 74177; 74250; 80048; 80053; 80202; 81001; 82550; 82570; 82805; 83516; 83520; 83605; 83735; 83880; 84156; 84484; 85007; 85025; 85027; 85379; 85384; 85610; 85652; 85730; 86160; 86225; 86235; 86256; 86703; 86850; 86900; 86901; 87040; 87077; 87086; 87186; 87205; 93005; 93306; 93971; 96365; 96367; 97110; 97163; 99152; 99291; C1894; C9113; G0378; J2185; J2250; J2405; J2543; J3480

== ENCOUNTER 2023-07-25 19:44 | Inpatient (IN) | payer BC, OTHER ==
[~2023-07-25] VITALS: Ht 188 cm; Wt 109.9 kg
[~2023-07-25 19:44] MED LIST: ACET5SOL5 PO; AMLO1TAB23 PO; ATOR40TA52 PO; CHOL20007 PO; CLON0.1T PO; CYCL-837 PO; ESCI1TAB37 PO; FAMO20TA10 PO; FINA5TAB4 PO; HYDR-4902 PO; LAMO200T34 PO; LINA5TAB PO; METO25TA93 PO; OLME20TA53 PO; SIMV40TA18 PO
[2023-07-25] MEDS: SODIUM CHLORIDE 0.9% 1,000 ML IV ONE (20:00)
[2023-07-25 20:44] LABS: Chloride 106 mmol/L (98-107); Potassium 3.7 mmol/L (3.5-5.1); Sodium 140 mmol/L (136-145)
[2023-07-25 20:45] LABS: Anion Gap 7 (5-15); Calcium 8.8 mg/dL (8.7-10.4); Carbon Dioxide 27 mmol/L (20-30)
[2023-07-25 20:50] LABS: BUN/Creatinine Ratio 7.9 (10.0-20.0); Blood Urea Nitrogen 16 mg/dL (9-23); Glucose 185 mg/dL (74-106)
[2023-07-25 21:21] LABS: Basophils # (auto) 0.1 10 ^3/uL (0-0.2); Basophils % (auto) 0.4 % (0.0-2.0); Eosinophils # (auto) 0 10 ^3/uL (0-0.8); Hematocrit 26.9 % (41.0-53.0); Hemoglobin 8.7 g/dL (13.5-17.5); Lymphocytes # (auto) 0.8 10 ^3/uL (0.4-5.4); Lymphocytes % (auto) 3.9 % (10.0-50.0); Mean Corpuscular Hemoglobin 29.7 pg (28.0-32.0); Mean Corpuscular Hgb Conc. 32.3 g/dL (32.0-36.0); Mean Corpuscular Volume 92.1 fL (80.0-100.0); Monocytes # (auto) 1.1 10 ^3/uL (0-1.3); Monocytes % (auto) 5.3 % (0.0-12.0); Neutrophils # (auto) 19.5 10 ^3/uL (1.6-8.6); Neutrophils % (auto) 90.4 % (37.0-80.0); Nucleated Red Blood Cells % 0.1 %; Red Blood Cells 2.92 10^6/uL (4.5-5.90); Red Cell Distribution Width 15.9 % (11.8-14.3); White Blood Cell 21.6 10^3/uL (4.4-10.8)
[2023-07-25] MEDS: PIPERACILLIN-TAZOB 3.375GM 100 ML IV ONE (21:39)
[2023-07-25 21:44] LABS: Urine Bacteria None Seen /hpf (None Seen)
[2023-07-25 21:56] LABS: Urine Blood 2+ /uL (Negative); Urine Clarity Clear (Clear); Urine Color Light-Yellow (Yellow); Urine Protein, UAD 1+ (Negative); Urine Specific Gravity 1.013 (1.001-1.035); Urine Urobilinogen Normal (Negative); Urine WBC 1 /hpf (0 - 3)
[2023-07-25] MEDS: ACETAMINOPHEN 650 MG RECT SUPP PR ONE (22:05)
[2023-07-25] MEDS ORDERED: DOCUSATE SOD 100 MG CAP PO PRN (22:15)
[2023-07-25] MEDS ORDERED: VANCOMYCIN PER PHARMACY 0 MG IV SCH (22:15)
[2023-07-25] MEDS: AZITHROMYCIN 500MG/ 250ML 250 ML IV ONE (22:28)
[2023-07-25] MEDS: LORazepam 2MG/ML-1ML VIAL IV ONE (22:56)
[2023-07-25] MEDS ORDERED: NITROGLYCERIN 0.4 MG SL TAB SL PRN (23:00)
[2023-07-25] MEDS: VANCOMYCIN 1GM/200ML 200 ML IV ONE (23:46)
[2023-07-26] MEDS: ACETAMINOPHEN IV 1000 MG/100ML (10MG/ML) IV ONE (01:28)
[2023-07-26 02:46] VITALS: PULSE 131; RESP 14; O2SAT 92
[2023-07-26 06:03] LABS: Hemoglobin 7.9 g/dL (13.5-17.5); Mean Corpuscular Volume 92.5 fL (80.0-100.0)
[2023-07-26 06:06] LABS: Hematocrit 24.6 % (41.0-53.0); Mean Corpuscular Hemoglobin 29.8 pg (28.0-32.0); Mean Corpuscular Hgb Conc. 32.2 g/dL (32.0-36.0); Red Blood Cells 2.65 10^6/uL (4.5-5.90); Red Cell Distribution Width 16.1 % (11.8-14.3); White Blood Cell 24.4 10^3/uL (4.4-10.8)
[2023-07-26 06:15] LABS: Basophils % (manual) 0 (0.0-2.0); Blast Cells 0; Eosinophils % (manual) 0 (0-7); Metamyelocytes % 0; Myelocytes % 0; Promyelocytes % 0; Reactive Lymphocytes 0
[2023-07-26] MEDS: SODIUM CHLOR 0.9% PF (SALINE LOCK) 10ML VIAL/SYR IV SCH (06:17)
[2023-07-26] MEDS: SODIUM CHLORIDE 0.9% 2,450 ML IV ONE (06:18)
[2023-07-26 06:27] LABS: Alanine Aminotransferase 28 U/L (7-40); Albumin 2.7 g/dL (3.2-4.8); Alkaline Phosphatase 69 U/L (46-116); Anion Gap 10 (5-15); Aspartate Aminotransferase 66 U/L (13-40); BUN/Creatinine Ratio 8.5 (10.0-20.0); Bilirubin, Total 1.9 mg/dL (0.2-1.0); Blood Urea Nitrogen 20 mg/dL (9-23); Calcium 8.3 mg/dL (8.5-10.1); Carbon Dioxide 25 mmol/L (20-30); Chloride 105 mmol/L (98-107); Glucose 192 mg/dL (74-106); Potassium 3.6 mmol/L (3.5-5.1); Sodium 140 mmol/L (136-145); Total Protein 6.1 g/dL (5.7-8.2)
[2023-07-26 06:36] LABS: Band Neutrophils % (manual) 34; Lymphocytes % (manual) 1 (10.0-50.0); Monocytes % (manual) 2 (0-12); Platelet Estimate Adequate
[2023-07-26] MEDS: LORazepam 2MG/ML-1ML VIAL IV PRN (08:00)
[2023-07-26 08:31] VITALS: RESP 20; O2SAT 98
[2023-07-26] MEDS: MULTIPLE VITAMIN TAB PO SCH (09:41)
[2023-07-26] MEDS: FAMOTIDINE (10MG/ML) 2ML VL IV SCH (09:42)
[2023-07-26] MEDS: HEPARIN SODIUM (PORCINE) 5000 UNITS/ML 1ML VIAL SC SCH (09:42)
[2023-07-26] MEDS: MORPHINE SULFATE INJ 2 MG/ml SYRG IV PRN (10:41)
[2023-07-26] MEDS: MEROPENEM 1GM IVPB 50 ML IV SCH (13:12)
[2023-07-26] MEDS: SODIUM CHLORIDE 0.9% 1,000 ML IV SCH (14:00)
[2023-07-26] MEDS: ATORVASTATIN 20 MG TAB PO SCH (21:30)
[2023-07-26] MEDS: LINEZOLID 600MG/300ML 300 ML IV SCH (21:44)
[2023-07-27 06:05] LABS: Basophils # (auto) 0.1 10 ^3/uL (0-0.2); Hemoglobin 7.8 g/dL (13.5-17.5); Monocytes # (auto) 0.7 10 ^3/uL (0-1.3)
[2023-07-27 06:07] LABS: Basophils % (auto) 0.4 % (0.0-2.0); Eosinophils # (auto) 0.1 10 ^3/uL (0-0.8); Eosinophils % (auto) 0.3 % (0.0-7.0); Hematocrit 23.9 % (41.0-53.0); Lymphocytes # (auto) 0.6 10 ^3/uL (0.4-5.4); Lymphocytes % (auto) 2.4 % (10.0-50.0); Mean Corpuscular Hemoglobin 30.1 pg (28.0-32.0); Mean Corpuscular Hgb Conc. 32.8 g/dL (32.0-36.0); Mean Corpuscular Volume 91.7 fL (80.0-100.0); Neutrophils # (auto) 23.1 10 ^3/uL (1.6-8.6); Neutrophils % (auto) 93.9 % (37.0-80.0); Red Cell Distribution Width 16.3 % (11.8-14.3); White Blood Cell 24.5 10^3/uL (4.4-10.8)
[2023-07-27 06:13] LABS: Calcium 7.6 mg/dL (8.7-10.4); Chloride 111 mmol/L (98-107); Potassium 3.5 mmol/L (3.5-5.1); Sodium 143 mmol/L (136-145)
[2023-07-27 06:14] LABS: Anion Gap 8 (5-15); Carbon Dioxide 24 mmol/L (20-30)
[2023-07-27 06:16] LABS: % Iron Saturation 8.7 % (20-55)
[2023-07-27 06:19] LABS: BUN/Creatinine Ratio 11.9 (10.0-20.0); Blood Urea Nitrogen 28 mg/dL (9-23); Glucose 144 mg/dL (74-106)
[2023-07-27 07:30] VITALS: PULSE 136; RESP 25; O2SAT 94
[2023-07-27] MEDS: ACETAMINOPHEN 650 MG RECT SUPP PR ONE (07:57)
[2023-07-27] MEDS: LACTATED RINGER'S 1,000 ML IV SCH (11:36)
[2023-07-27] MEDS: EPOETIN ALFA-EPBX 10,000 UNIT/1ML VIAL SC SCH (11:40)
[2023-07-27 13:54] LABS: Base Excess -1.5 mmol/L (-2.0-2.0)
[2023-07-27] MEDS: POTASSIUM CHL 20MEQ/100ML 100 ML IV ONE (14:20)
[2023-07-27] MEDS: MAGNESIUM SULFATE 1GM/100ML 100 ML IV SCH (16:44)
[2023-07-28] VITALS (10 sets, daily range): BP systolic 119–161; BP diastolic 58–102; PULSE 107–125; RESP 12–38; TEMP 99.7–100.8; O2SAT 95–100
[2023-07-28 06:43] LABS: Anion Gap 5 (5-15); Carbon Dioxide 27 mmol/L (20-30); Chloride 112 mmol/L (98-107); Potassium 3.3 mmol/L (3.5-5.1); Sodium 144 mmol/L (136-145)
[2023-07-28 06:45] LABS: Calcium 7.9 mg/dL (8.7-10.4)
[2023-07-28 06:49] LABS: Glucose 138 mg/dL (74-106)
[2023-07-28 06:50] LABS: Blood Urea Nitrogen 21 mg/dL (9-23); Magnesium 1.8 mg/dL (1.6-2.6)
[2023-07-28 08:06] LABS: PSA Free 0.07 ng/mL; Prostate Specific Antigen 0.3 ng/mL (0.0-4.0)
[2023-07-28] MEDS: POTASSIUM CHL 20MEQ/100ML 100 ML IV SCH (09:15)
[2023-07-28] MEDS: MAGNESIUM SULFATE 1GM/100ML 100 ML IV ONE (09:15)
[2023-07-28 09:27] LABS: Basophils # (auto) 0.1 10 ^3/uL (0-0.2); Eosinophils # (auto) 0.2 10 ^3/uL (0-0.8); Lymphocytes # (auto) 0.8 10 ^3/uL (0.4-5.4); Lymphocytes % (auto) 3.8 % (10.0-50.0)
[2023-07-28 09:28] LABS: Basophils % (auto) 0.6 % (0.0-2.0); Hematocrit 25.3 % (41.0-53.0); Mean Corpuscular Hemoglobin 29.6 pg (28.0-32.0); Mean Corpuscular Hgb Conc. 31.7 g/dL (32.0-36.0); Mean Corpuscular Volume 93.3 fL (80.0-100.0); Monocytes # (auto) 0.7 10 ^3/uL (0-1.3); Monocytes % (auto) 3.1 % (0.0-12.0); Neutrophils # (auto) 20.2 10 ^3/uL (1.6-8.6); Neutrophils % (auto) 91.5 % (37.0-80.0); Red Blood Cells 2.71 10^6/uL (4.5-5.90); Red Cell Distribution Width 16.1 % (11.8-14.3); White Blood Cell 22.1 10^3/uL (4.4-10.8)
[2023-07-28] MEDS ORDERED: FAMOTIDINE (10MG/ML) 2ML VL IV SCH (10:00)
[2023-07-28] MEDS: FAMOTIDINE (10MG/ML) 2ML VL IV SCH (10:41)
[2023-07-28] MEDS: MEROPENEM 1GM IVPB 50 ML IV SCH (13:32)
[2023-07-28] MEDS ORDERED: CLINIMIX PER PHARMACY 0 ML IV SCH (18:00)
[2023-07-28] MEDS: FUROSEMIDE 20 MG/2 ML VIAL IV ONE (18:00)
[2023-07-28] MEDS: METOPROLOL TARTRATE 1MG/1ML-5ML VIAL IV ONE (18:45)
[2023-07-28] MEDS ORDERED: LABETALOL HCL 5 MG/ML 4ML SYRINGE IV PRN (18:45)
[2023-07-28 19:07] LABS: Basophils # (auto) 0.1 10 ^3/uL (0-0.2); Basophils % (auto) 0.3 % (0.0-2.0); Eosinophils # (auto) 0.3 10 ^3/uL (0-0.8); Eosinophils % (auto) 1.4 % (0.0-7.0); Hematocrit 27.8 % (41.0-53.0); Hemoglobin 8.9 g/dL (13.5-17.5); Lymphocytes # (auto) 0.8 10 ^3/uL (0.4-5.4); Lymphocytes % (auto) 4.6 % (10.0-50.0); Mean Corpuscular Hemoglobin 29.5 pg (28.0-32.0); Mean Corpuscular Hgb Conc. 32.2 g/dL (32.0-36.0); Mean Corpuscular Volume 91.7 fL (80.0-100.0); Monocytes # (auto) 0.7 10 ^3/uL (0-1.3); Monocytes % (auto) 3.9 % (0.0-12.0); Neutrophils # (auto) 15.8 10 ^3/uL (1.6-8.6); Neutrophils % (auto) 89.8 % (37.0-80.0); Red Blood Cells 3.03 10^6/uL (4.5-5.90); Red Cell Distribution Width 15.6 % (11.8-14.3); White Blood Cell 17.6 10^3/uL (4.4-10.8)
[2023-07-29] VITALS (10 sets, daily range): BP systolic 115–149; BP diastolic 57–78; PULSE 86–125; RESP 11–22; TEMP 99.1–101.3; O2SAT 90–100
[2023-07-29 05:37] LABS: Hematocrit 26.3 % (41.0-53.0); Hemoglobin 8.6 g/dL (13.5-17.5); Mean Corpuscular Hemoglobin 30.2 pg (28.0-32.0); Mean Corpuscular Hgb Conc. 32.6 g/dL (32.0-36.0); Mean Corpuscular Volume 92.6 fL (80.0-100.0); Red Blood Cells 2.84 10^6/uL (4.5-5.90); Red Cell Distribution Width 15.8 % (11.8-14.3); White Blood Cell 16.3 10^3/uL (4.4-10.8)
[2023-07-29 05:46] LABS: Alanine Aminotransferase 36 U/L (7-40); Albumin 2.5 g/dL (3.2-4.8); Alkaline Phosphatase 80 U/L (46-116); Anion Gap 7 (5-15); Aspartate Aminotransferase 43 U/L (13-40); BUN/Creatinine Ratio 12.2 (10.0-20.0); Blood Urea Nitrogen 17 mg/dL (9-23); Calcium 8.4 mg/dL (8.5-10.1); Carbon Dioxide 27 mmol/L (20-30); Chloride 111 mmol/L (98-107); Glucose 130 mg/dL (74-106); Magnesium 1.6 mg/dL (1.6-2.6); Potassium 4.3 mmol/L (3.5-5.1); Sodium 145 mmol/L (136-145)
[2023-07-29 05:47] LABS: Bilirubin, Total 0.6 mg/dL (0.2-1.0); Total Protein 5.6 g/dL (5.7-8.2)
[2023-07-29 06:13] LABS: Basophils % (manual) 0 (0.0-2.0); Blast Cells 0; Metamyelocytes % 0; Myelocytes % 0; Promyelocytes % 0; Reactive Lymphocytes 0
[2023-07-29 08:09] LABS: Anisocytosis Slight; Band Neutrophils % (manual) 5; Eosinophils % (manual) 2 (0-7); Lymphocytes % (manual) 8 (10.0-50.0); Monocytes % (manual) 6 (0-12); Platelet Estimate Adequate
[2023-07-29] MEDS: ACETAMINOPHEN 650 MG RECT SUPP PR ONE (09:10)
[2023-07-29 11:10] LABS: INR 1.14 (0.9-1.15); Partial Thromboplastin Time 36.3 SEC (24.5-34.5)
[2023-07-29] MEDS: HYDROmorphone HCL 2 MG/ML VL/or syr IV ONE (12:39)
[2023-07-29] MEDS: LIDOCAINE 1% (LOCAL ANESTH.) PF 5ml SDV ID ONE (13:47)
[2023-07-29] MEDS ORDERED: TPN PER PHARMACY 0 ML IV SCH (14:30)
[2023-07-29] MEDS: LORazepam 2MG/ML-1ML VIAL IV PRN (21:38)
[2023-07-29] MEDS: SODIUM CHLOR 0.9% PF (SALINE LOCK) 10ML VIAL/SYR IV SCH (22:00)
[2023-07-30] VITALS (11 sets, daily range): BP systolic 107–140; BP diastolic 54–86; PULSE 73–115; RESP 12–19; TEMP 97.9–100.8; O2SAT 94–100
[2023-07-30] MEDS: ACETAMINOPHEN 650 MG RECT SUPP PR ONE (03:46)
[2023-07-30 06:16] LABS: Anion Gap 5 (5-15); Calcium 8.4 mg/dL (8.7-10.4); Carbon Dioxide 32 mmol/L (20-30); Chloride 105 mmol/L (98-107); Potassium 2.9 mmol/L (3.5-5.1); Sodium 142 mmol/L (136-145)
[2023-07-30 06:21] LABS: Glucose 115 mg/dL (74-106)
[2023-07-30 06:22] LABS: BUN/Creatinine Ratio 9.8 (10.0-20.0); Blood Urea Nitrogen 12 mg/dL (9-23); Magnesium 1.4 mg/dL (1.6-2.6)
[2023-07-30] MEDS: MAGNESIUM SULFATE 1GM/100ML 100 ML IV ONE (07:09)
[2023-07-30] MEDS: POTASSIUM CHL 20MEQ/100ML 100 ML IV SCH (07:09)
[2023-07-30 08:06] LABS: PSA Free 0.05 ng/mL; Prostate Specific Antigen 0.2 ng/mL (0.0-4.0)
[2023-07-30] MEDS: METOPROLOL TARTRATE 25 MG TAB ONE (11:12)
[2023-07-30] MEDS: METOPROLOL TARTRATE 25 MG TAB PO SCH (12:25)
[2023-07-30] MEDS: TPN PER PHARMACY IV NR (19:51)
[2023-07-30] MEDS ORDERED: DEXTROSE (50%) 50ML SYRG IV SCH (20:00)
[2023-07-30] MEDS: ACETAMINOPHEN 325 MG TAB PO PRN (22:59)
[2023-07-31] VITALS (16 sets, daily range): BP systolic 123–160; BP diastolic 59–100; PULSE 87–111; RESP 14–20; TEMP 98.1–100.9; O2SAT 95–100
[2023-07-31] MEDS: ACCU-CHEK COMFORT CURVE STRIP VI SCH (00:07)
[2023-07-31] MEDS: InsuLIN REG 1unit/0.01ml Soln (100units/ml) SC SCH (00:07)
[2023-07-31 06:31] LABS: Red Cell Distribution Width 15.4 % (11.8-14.3); White Blood Cell 11.3 10^3/uL (4.4-10.8)
[2023-07-31 06:34] LABS: Hematocrit 24.2 % (41.0-53.0); Hemoglobin 8.1 g/dL (13.5-17.5); Mean Corpuscular Hemoglobin 29.9 pg (28.0-32.0); Mean Corpuscular Hgb Conc. 33.5 g/dL (32.0-36.0); Mean Corpuscular Volume 89.3 fL (80.0-100.0); Red Blood Cells 2.71 10^6/uL (4.5-5.90)
[2023-07-31 06:38] LABS: Basophils % (manual) 0 (0.0-2.0); Blast Cells 0; Metamyelocytes % 0; Myelocytes % 0; Promyelocytes % 0; Reactive Lymphocytes 0
[2023-07-31 06:51] LABS: Alanine Aminotransferase 33 U/L (7-40); Albumin 2.5 g/dL (3.2-4.8); Alkaline Phosphatase 69 U/L (46-116); Anion Gap 5 (5-15); BUN/Creatinine Ratio 11.4 (10.0-20.0); Blood Urea Nitrogen 12 mg/dL (9-23); Calcium 8.3 mg/dL (8.7-10.4); Carbon Dioxide 31 mmol/L (20-30); Chloride 102 mmol/L (98-107); Glucose 138 mg/dL (74-106); Magnesium 1.7 mg/dL (1.6-2.6); Sodium 138 mmol/L (136-145)
[2023-07-31 06:52] LABS: Aspartate Aminotransferase 51 U/L (13-40); Phosphorus 2.9 mg/dL (2.4-5.1)
[2023-07-31 06:53] LABS: Bilirubin, Total 0.5 mg/dL (0.2-1.0); Total Protein 5.7 g/dL (5.7-8.2)
[2023-07-31 07:31] LABS: Band Neutrophils % (manual) 4; Eosinophils % (manual) 5 (0-7); Lymphocytes % (manual) 11 (10.0-50.0); Monocytes % (manual) 3 (0-12); Platelet Estimate Adequate
[2023-07-31] MEDS: POTASSIUM CHL 20MEQ/100ML 100 ML IV SCH (11:22)
[2023-07-31] MEDS: HYDROcodone-ACET 5/325MG TAB PO PRN (12:52)
[2023-07-31] MEDS: TPN PER PHARMACY IV NR (21:39)
[2023-08-01] VITALS (29 sets, daily range): BP systolic 123–173; BP diastolic 50–79; PULSE 75–131; RESP 10–33; TEMP 99.1–100.8; O2SAT 91–100
[2023-08-01 07:07] LABS: Alanine Aminotransferase 28 U/L (7-40); Alkaline Phosphatase 72 U/L (46-116); Anion Gap 6 (5-15); BUN/Creatinine Ratio 12.8 (10.0-20.0); Blood Urea Nitrogen 12 mg/dL (9-23); Carbon Dioxide 29 mmol/L (20-30); Chloride 101 mmol/L (98-107); Glucose 121 mg/dL (74-106); Magnesium 1.7 mg/dL (1.6-2.6); Potassium 3.4 mmol/L (3.5-5.1); Sodium 136 mmol/L (136-145); Triglycerides 170 mg/dL (< 150)
[2023-08-01 07:08] LABS: Albumin 2.5 g/dL (3.2-4.8); Aspartate Aminotransferase 35 U/L (13-40)
[2023-08-01 07:09] LABS: Bilirubin, Total 0.4 mg/dL (0.2-1.0); Total Protein 5.8 g/dL (5.7-8.2)
[2023-08-01] MEDS: POTASSIUM CHL 20MEQ/100ML 100 ML IV ONE (09:33)
[2023-08-01] MEDS: MORPHINE SULFATE INJ 2 MG/ml SYRG IV PRN (11:57)
[2023-08-01] MEDS ORDERED: metroNIDAZOLE 500MG/100ML 100 ML IV SCH (14:00)
[2023-08-01] MEDS ORDERED: VANCOMYCIN PER PHARMACY 0 MG IV SCH (17:45)
[2023-08-01] MEDS: VANCOMYCIN 1GM/200ML 200 ML IV ONE (18:10)
[2023-08-01] MEDS: ACETAMINOPHEN 650 MG RECT SUPP PR PRN (18:16)
[2023-08-01] MEDS: FAT EMULSION IV NR (20:22)
[2023-08-01] MEDS: SODIUM CHLORIDE IV NR (20:22)
[2023-08-01] MEDS: [UNRECOGNIZED DRUG - OTHER] IV NR (20:22)
[2023-08-01] MEDS: SODIUM PHOSPHATES IV NR (20:22)
[2023-08-01] MEDS: AMPICILLIN & SULBACTAM SODIUM 3 GM in SODIUM CHL 0.9% 100 ML IV SCH (20:32)
[2023-08-01] MEDS: METOPROLOL TARTRATE 25 MG TAB PO SCH (22:06)
[2023-08-02] VITALS (24 sets, daily range): BP systolic 114–157; BP diastolic 46–79; PULSE 84–115; RESP 11–25; TEMP 99.3–100; O2SAT 86–100
[2023-08-02] MEDS: AMPICILLIN & SULBACTAM SODIUM 3 GM in SODIUM CHL 0.9% 100 ML IV SCH (01:59)
[2023-08-02] MEDS: VANCOMYCIN 1GM/200ML 200 ML IV SCH (03:31)
[2023-08-02 05:43] LABS: Alanine Aminotransferase 25 U/L (7-40); Alkaline Phosphatase 74 U/L (46-116); Anion Gap 6 (5-15); Aspartate Aminotransferase 30 U/L (13-40); BUN/Creatinine Ratio 14.4 (10.0-20.0); Blood Urea Nitrogen 15 mg/dL (9-23); Calcium 8.1 mg/dL (8.5-10.1); Carbon Dioxide 29 mmol/L (20-30); Chloride 102 mmol/L (98-107); Glucose 158 mg/dL (74-106); Magnesium 1.9 mg/dL (1.6-2.6); Potassium 3.8 mmol/L (3.5-5.1); Sodium 137 mmol/L (136-145)
[2023-08-02 05:44] LABS: Albumin 2.5 g/dL (3.2-4.8); Bilirubin, Total 0.3 mg/dL (0.2-1.0); Phosphorus 3.9 mg/dL (2.4-5.1); Total Protein 5.9 g/dL (5.7-8.2)
[2023-08-02] MEDS: FUROSEMIDE 40 MG/4 ML VIAL IV ONE (13:14)
[2023-08-02 14:23] LABS: Basophils # (auto) 0.1 10 ^3/uL (0-0.2); Basophils % (auto) 1.1 % (0.0-2.0); Eosinophils # (auto) 0.6 10 ^3/uL (0-0.8); Eosinophils % (auto) 5.4 % (0.0-7.0); Hemoglobin 7.4 g/dL (13.5-17.5); Lymphocytes # (auto) 0.7 10 ^3/uL (0.4-5.4); Monocytes # (auto) 0.4 10 ^3/uL (0-1.3); Nucleated Red Blood Cells % 0.1 %; White Blood Cell 11.6 10^3/uL (4.4-10.8)
[2023-08-02 14:25] LABS: Hematocrit 22.9 % (41.0-53.0); Lymphocytes % (auto) 5.8 % (10.0-50.0); Mean Corpuscular Hemoglobin 31.2 pg (28.0-32.0); Mean Corpuscular Hgb Conc. 32.3 g/dL (32.0-36.0); Mean Corpuscular Volume 96.5 fL (80.0-100.0); Monocytes % (auto) 3.3 % (0.0-12.0); Neutrophils # (auto) 9.8 10 ^3/uL (1.6-8.6); Neutrophils % (auto) 84.4 % (37.0-80.0); Red Blood Cells 2.37 10^6/uL (4.5-5.90); Red Cell Distribution Width 15.9 % (11.8-14.3)
[2023-08-02] MEDS: [UNRECOGNIZED DRUG - OTHER] IV NR (20:33)
[2023-08-02] MEDS: POTASSIUM CHLORIDE IV NR (20:33)
[2023-08-02] MEDS: FAT EMULSION IV NR (20:33)
[2023-08-02] MEDS: SODIUM CHLORIDE IV NR (20:33)
[2023-08-03] VITALS (19 sets, daily range): BP systolic 113–156; BP diastolic 25–86; PULSE 93–129; RESP 11–21; TEMP 98.2–100; O2SAT 96–100
[2023-08-03 05:44] LABS: Alanine Aminotransferase 26 U/L (7-40); Albumin 2.5 g/dL (3.2-4.8); Alkaline Phosphatase 64 U/L (46-116); Anion Gap 9 (5-15); Aspartate Aminotransferase 30 U/L (13-40); BUN/Creatinine Ratio 17.5 (10.0-20.0); Blood Urea Nitrogen 18 mg/dL (9-23); Calcium 8.2 mg/dL (8.7-10.4); Carbon Dioxide 28 mmol/L (20-30); Chloride 103 mmol/L (98-107); Glucose 176 mg/dL (74-106); Magnesium 1.9 mg/dL (1.6-2.6); Potassium 3.5 mmol/L (3.5-5.1); Sodium 140 mmol/L (136-145)
[2023-08-03 05:45] LABS: Bilirubin, Total 0.3 mg/dL (0.2-1.0); Phosphorus 3.4 mg/dL (2.4-5.1)
[2023-08-03] MEDS: PANTOPRAZOLE 40 MG/10 ML VIAL INJ IV SCH (09:11)
[2023-08-03] MEDS: FUROSEMIDE 40 MG/4 ML VIAL IV SCH (09:14)
[2023-08-03] MEDS: MUPIROCIN 2% OINT 15gm or 22gm FOR MRSA NARES EACHNOSTRI SCH (10:00)
[2023-08-03] MEDS: METOPROLOL TARTRATE 1MG/1ML-5ML VIAL IV ONE (11:27)
[2023-08-03] MEDS: POTASSIUM CHL 20MEQ/100ML 100 ML IV ONE (11:27)
[2023-08-03] MEDS: TPN PER PHARMACY IV NR (20:00)
[2023-08-03] MEDS: OFLOXACIN OTIC(EAR) 0.3 % DROP 5ML RIGHT EAR SCH (21:32)
[2023-08-04] VITALS (18 sets, daily range): BP systolic 106–162; BP diastolic 38–86; PULSE 86–118; RESP 12–22; TEMP 97.8–99.1; O2SAT 94–100
[2023-08-04 05:47] LABS: Alanine Aminotransferase 26 U/L (7-40); Albumin 2.7 g/dL (3.2-4.8); Alkaline Phosphatase 66 U/L (46-116); Anion Gap 8 (5-15); BUN/Creatinine Ratio 20.8 (10.0-20.0); Blood Urea Nitrogen 21 mg/dL (9-23); Calcium 8.5 mg/dL (8.7-10.4); Carbon Dioxide 29 mmol/L (20-30); Chloride 104 mmol/L (98-107); Glucose 171 mg/dL (74-106); Magnesium 1.9 mg/dL (1.6-2.6); Potassium 3.8 mmol/L (3.5-5.1); Sodium 141 mmol/L (136-145)
[2023-08-04 05:48] LABS: Aspartate Aminotransferase 26 U/L (13-40); Bilirubin, Total 0.3 mg/dL (0.2-1.0); Phosphorus 3.2 mg/dL (2.4-5.1); Total Protein 6.5 g/dL (5.7-8.2)
[2023-08-04 06:10] LABS: Hematocrit 23.2 % (41.0-53.0); Mean Corpuscular Hemoglobin 30.4 pg (28.0-32.0); Mean Corpuscular Hgb Conc. 34.2 g/dL (32.0-36.0); Mean Corpuscular Volume 88.9 fL (80.0-100.0); Red Blood Cells 2.61 10^6/uL (4.5-5.90); Red Cell Distribution Width 15.5 % (11.8-14.3); White Blood Cell 11.5 10^3/uL (4.4-10.8)
[2023-08-04 06:17] LABS: Basophils % (manual) 0 (0.0-2.0); Blast Cells 0; Metamyelocytes % 0; Myelocytes % 0; Promyelocytes % 0; Reactive Lymphocytes 0
[2023-08-04 09:49] LABS: Band Neutrophils % (manual) 1; Eosinophils % (manual) 8 (0-7); Lymphocytes % (manual) 9 (10.0-50.0); Monocytes % (manual) 1 (0-12); Platelet Estimate Adequate
[2023-08-04] MEDS: TPN PER PHARMACY IV NR (20:24)
[2023-08-05] VITALS (20 sets, daily range): BP systolic 112–173; BP diastolic 40–80; PULSE 82–125; RESP 11–24; TEMP 97.8–99.1; O2SAT 73–100
[2023-08-05 05:37] LABS: Alanine Aminotransferase 21 U/L (7-40); Albumin 2.6 g/dL (3.2-4.8); Alkaline Phosphatase 59 U/L (46-116); Anion Gap 9 (5-15); Aspartate Aminotransferase 19 U/L (13-40); BUN/Creatinine Ratio 20.6 (10.0-20.0); Blood Urea Nitrogen 22 mg/dL (9-23); Calcium 8.5 mg/dL (8.7-10.4); Carbon Dioxide 28 mmol/L (20-30); Chloride 104 mmol/L (98-107); Glucose 164 mg/dL (74-106); Magnesium 1.8 mg/dL (1.6-2.6); Potassium 3.4 mmol/L (3.5-5.1); Sodium 141 mmol/L (136-145)
[2023-08-05 05:38] LABS: Bilirubin, Total 0.3 mg/dL (0.2-1.0); Total Protein 6.4 g/dL (5.7-8.2)
[2023-08-05] MEDS: POTASSIUM CHL 20MEQ/100ML 100 ML IV ONE ×2 (06:15→06:32)
[2023-08-05] MEDS: METOPROLOL TARTRATE 1MG/1ML-5ML VIAL IV PRN (07:19)
[2023-08-05] MEDS: VANCOMYCIN 1GM/200ML 200 ML IV SCH (19:46)
[2023-08-05] MEDS: TPN PER PHARMACY IV NR (19:58)
[2023-08-06] VITALS (21 sets, daily range): BP systolic 102–170; BP diastolic 29–84; PULSE 95–125; RESP 13–22; TEMP 98.3–99.7; O2SAT 51–100
[2023-08-06 05:38] LABS: Alanine Aminotransferase 21 U/L (7-40); Albumin 2.9 g/dL (3.2-4.8); Alkaline Phosphatase 67 U/L (46-116); Anion Gap 7 (5-15); Aspartate Aminotransferase 20 U/L (13-40); BUN/Creatinine Ratio 19.8 (10.0-20.0); Blood Urea Nitrogen 23 mg/dL (9-23); Calcium 8.7 mg/dL (8.5-10.1); Carbon Dioxide 28 mmol/L (20-30); Chloride 105 mmol/L (98-107); Glucose 144 mg/dL (74-106); Magnesium 1.9 mg/dL (1.6-2.6); Phosphorus 4.2 mg/dL (2.4-5.1); Potassium 3.3 mmol/L (3.5-5.1); Sodium 140 mmol/L (136-145)
[2023-08-06 05:39] LABS: Bilirubin, Total 0.3 mg/dL (0.2-1.0)
[2023-08-06] MEDS: D5W/SOD CHLO 0.9% 1,000 ML IV SCH (08:00)
[2023-08-06] MEDS: POTASSIUM CHL 20MEQ/100ML 100 ML IV SCH (09:40)
[2023-08-06 10:42] LABS: INR 1.13 (0.9-1.15); Partial Thromboplastin Time 35.3 SEC (24.5-34.5); Prothrombin Time 11.9 sec (9.3-11.8)
[2023-08-06] MEDS: LIDOCAINE 1% (LOCAL ANESTH.) PF 5ml SDV ID ONE (15:26)
[2023-08-06] MEDS: AMINO ACID INFUSION IN D5W 2,000 ML IV NR (20:00)
[2023-08-06] MEDS: SODIUM CHLOR 0.9% PF (SALINE LOCK) 10ML VIAL/SYR IV SCH (21:57)
[2023-08-07] VITALS (24 sets, daily range): BP systolic 105–169; BP diastolic 35–98; PULSE 102–125; RESP 10–26; TEMP 98.2–99.7; O2SAT 85–100
[2023-08-07 08:15] LABS: Alanine Aminotransferase 19 U/L (7-40); Albumin 2.7 g/dL (3.2-4.8); Alkaline Phosphatase 67 U/L (46-116); Anion Gap 5 (5-15); Aspartate Aminotransferase 18 U/L (13-40); BUN/Creatinine Ratio 16.8 (10.0-20.0); Bilirubin, Total 0.4 mg/dL (0.2-1.0); Blood Urea Nitrogen 22 mg/dL (9-23); Calcium 8.4 mg/dL (8.5-10.1); Carbon Dioxide 29 mmol/L (20-30); Chloride 109 mmol/L (98-107); Glucose 146 mg/dL (74-106); Magnesium 1.6 mg/dL (1.6-2.6); Phosphorus 4.1 mg/dL (2.4-5.1); Potassium 4.1 mmol/L (3.5-5.1); Sodium 143 mmol/L (136-145); Total Protein 6.4 g/dL (5.7-8.2)
[2023-08-07 09:06] LABS: Basophils # (auto) 0.1 10 ^3/uL (0-0.2); Eosinophils # (auto) 0.3 10 ^3/uL (0-0.8); Eosinophils % (auto) 3.5 % (0.0-7.0); Hemoglobin 7.6 g/dL (13.5-17.5); Monocytes # (auto) 0.6 10 ^3/uL (0-1.3)
[2023-08-07 09:08] LABS: Basophils % (auto) 1.2 % (0.0-2.0); Hematocrit 22.8 % (41.0-53.0); Lymphocytes % (auto) 13.6 % (10.0-50.0); Mean Corpuscular Hemoglobin 30.4 pg (28.0-32.0); Mean Corpuscular Hgb Conc. 33.4 g/dL (32.0-36.0); Mean Corpuscular Volume 90.9 fL (80.0-100.0); Neutrophils # (auto) 5.5 10 ^3/uL (1.6-8.6); Neutrophils % (auto) 73.7 % (37.0-80.0); Nucleated Red Blood Cells % 0.1 %; Red Blood Cells 2.51 10^6/uL (4.5-5.90); Red Cell Distribution Width 15.5 % (11.8-14.3); White Blood Cell 7.4 10^3/uL (4.4-10.8)
[2023-08-07] MEDS: METOPROLOL TARTRATE 1MG/1ML-5ML VIAL IV PRN (10:04)
[2023-08-07] MEDS: methylPREDNISolone SOD SUCC 40 MG/ML VL ONE (10:43)
[2023-08-07] MEDS: LORazepam 2MG/ML-1ML VIAL IV ONE (15:15)
[2023-08-07] MEDS: TPN PER PHARMACY IV NR (20:00)
[2023-08-08] VITALS (20 sets, daily range): BP systolic 122–153; BP diastolic 32–85; PULSE 99–122; RESP 13–26; TEMP 98–101.2; O2SAT 92–100
[2023-08-08 06:13] LABS: Basophils # (auto) 0.1 10 ^3/uL (0-0.2); Basophils % (auto) 1.1 % (0.0-2.0); Eosinophils # (auto) 0.3 10 ^3/uL (0-0.8); Eosinophils % (auto) 4.9 % (0.0-7.0); Hematocrit 21.2 % (41.0-53.0); Hemoglobin 7.1 g/dL (13.5-17.5); Lymphocytes # (auto) 0.8 10 ^3/uL (0.4-5.4); Lymphocytes % (auto) 13.1 % (10.0-50.0); Mean Corpuscular Hemoglobin 30.4 pg (28.0-32.0); Mean Corpuscular Hgb Conc. 33.4 g/dL (32.0-36.0); Monocytes # (auto) 0.4 10 ^3/uL (0-1.3); Monocytes % (auto) 6.7 % (0.0-12.0); Neutrophils # (auto) 4.8 10 ^3/uL (1.6-8.6); Neutrophils % (auto) 74.2 % (37.0-80.0); Nucleated Red Blood Cells % 0.1 %; Red Blood Cells 2.33 10^6/uL (4.5-5.90); Red Cell Distribution Width 16.1 % (11.8-14.3); White Blood Cell 6.5 10^3/uL (4.4-10.8)
[2023-08-08 06:31] LABS: Alanine Aminotransferase 13 U/L (7-40); Albumin 2.7 g/dL (3.2-4.8); Alkaline Phosphatase 60 U/L (46-116); Anion Gap 8 (5-15); Aspartate Aminotransferase 16 U/L (13-40); BUN/Creatinine Ratio 12.4 (10.0-20.0); Bilirubin, Total 0.4 mg/dL (0.2-1.0); Blood Urea Nitrogen 16 mg/dL (9-23); Calcium 8.5 mg/dL (8.5-10.1); Carbon Dioxide 28 mmol/L (20-30); Chloride 107 mmol/L (98-107); Glucose 115 mg/dL (74-106); Magnesium 1.8 mg/dL (1.6-2.6); Phosphorus 3.3 mg/dL (2.4-5.1); Sodium 143 mmol/L (136-145); Total Protein 6.8 g/dL (5.7-8.2)
[2023-08-08] MEDS: POTASSIUM CHL 20MEQ/100ML 100 ML IV SCH (09:15)
[2023-08-08] MEDS: IRON SUCROSE COMPLEX 100 ML IV SCH (12:53)
[2023-08-08] MEDS: HALOPERIDOL LACTATE 5 MG/ML INJ VIAL IV PRN (13:58)
[2023-08-08] MEDS: TPN PER PHARMACY IV NR (20:00)
[2023-08-09] VITALS (8 sets, daily range): BP systolic 124–148; BP diastolic 63–75; PULSE 106–115; RESP 18–20; TEMP 98.2–98.4; O2SAT 95–100
[2023-08-09 07:04] LABS: Alanine Aminotransferase 16 U/L (7-40); Albumin 2.5 g/dL (3.2-4.8); Alkaline Phosphatase 64 U/L (46-116); Anion Gap 8 (5-15); Aspartate Aminotransferase 17 U/L (13-40); BUN/Creatinine Ratio 16.3 (10.0-20.0); Blood Urea Nitrogen 22 mg/dL (9-23); Calcium 8.4 mg/dL (8.5-10.1); Carbon Dioxide 25 mmol/L (20-30); Chloride 110 mmol/L (98-107); Glucose 171 mg/dL (74-106); Potassium 3.3 mmol/L (3.5-5.1); Sodium 143 mmol/L (136-145); Triglycerides 158 mg/dL (< 150)
[2023-08-09 07:05] LABS: Bilirubin, Total 0.3 mg/dL (0.2-1.0); Total Protein 6.3 g/dL (5.7-8.2)
[2023-08-09] MEDS: POTASSIUM CHL 20MEQ/100ML 100 ML IV ONE (09:24)
[2023-08-09] MEDS: VANCOMYCIN 1GM/200ML 200 ML IV ONE (09:48)
[2023-08-09] MEDS: TPN PER PHARMACY IV NR (20:22)
[2023-08-10] VITALS (7 sets, daily range): BP systolic 122–148; BP diastolic 51–76; PULSE 68–126; RESP 18–19; TEMP 98–99; O2SAT 92–99
[2023-08-10] MEDS ORDERED: AMPICILLIN & SULBACTAM SODIUM 3 GM in SODIUM CHL 0.9% 100 ML IV SCH (04:00)
[2023-08-10 12:06] LABS: Alanine Aminotransferase 20 U/L (7-40); Albumin 2.8 g/dL (3.2-4.8); Alkaline Phosphatase 72 U/L (46-116); Anion Gap 5 (5-15); Aspartate Aminotransferase 19 U/L (13-40); BUN/Creatinine Ratio 11.9 (10.0-20.0); Bilirubin, Total 0.6 mg/dL (0.2-1.0); Blood Urea Nitrogen 18 mg/dL (9-23); Calcium 8.8 mg/dL (8.5-10.1); Carbon Dioxide 27 mmol/L (20-30); Chloride 105 mmol/L (98-107); Glucose 127 mg/dL (74-106); Magnesium 1.8 mg/dL (1.6-2.6); Phosphorus 4.2 mg/dL (2.4-5.1); Potassium 3.1 mmol/L (3.5-5.1); Sodium 137 mmol/L (136-145); Total Protein 6.9 g/dL (5.7-8.2)
[2023-08-10] MEDS: QUEtiapine FUMARATE 25 MG TAB PO SCH (13:54)
[2023-08-10] MEDS: lamoTRIgine 100 MG TAB PO ONE (13:54)
[2023-08-10] MEDS: POTASSIUM EFFERVESENT TAB 25 MEQ PO ONE (13:58)
[2023-08-10] MEDS: AMPICILLIN & SULBACTAM SODIUM 3 GM in SODIUM CHL 0.9% 100 ML IV SCH (19:07)
[2023-08-10] MEDS: VANCOMYCIN 1GM/200ML 200 ML IV ONE (19:07)
[2023-08-10] MEDS: lamoTRIgine 100 MG TAB PO SCH (22:36)
[2023-08-11] VITALS (7 sets, daily range): BP systolic 102–130; BP diastolic 49–63; PULSE 98–113; RESP 16–21; TEMP 98.2–99.4; O2SAT 92–97
[2023-08-11] MEDS: AMPICILLIN & SULBACTAM SODIUM 3 GM in SODIUM CHL 0.9% 100 ML IV SCH (04:06)
[2023-08-11 06:01] LABS: Basophils # (auto) 0.1 10 ^3/uL (0-0.2); Basophils % (auto) 1.3 % (0.0-2.0); Eosinophils # (auto) 0.2 10 ^3/uL (0-0.8); Eosinophils % (auto) 4.1 % (0.0-7.0); Hematocrit 21.7 % (41.0-53.0); Hemoglobin 7.2 g/dL (13.5-17.5); Lymphocytes # (auto) 1.1 10 ^3/uL (0.4-5.4); Lymphocytes % (auto) 20.8 % (10.0-50.0); Mean Corpuscular Hemoglobin 30.7 pg (28.0-32.0); Mean Corpuscular Hgb Conc. 33.2 g/dL (32.0-36.0); Mean Corpuscular Volume 92.5 fL (80.0-100.0); Monocytes # (auto) 0.3 10 ^3/uL (0-1.3); Neutrophils # (auto) 3.5 10 ^3/uL (1.6-8.6); Neutrophils % (auto) 67.8 % (37.0-80.0); Nucleated Red Blood Cells % 0.3 %; Red Blood Cells 2.34 10^6/uL (4.5-5.90); White Blood Cell 5.2 10^3/uL (4.4-10.8)
[2023-08-11 06:18] LABS: Chloride 105 mmol/L (98-107); Potassium 3.1 mmol/L (3.5-5.1); Sodium 140 mmol/L (136-145)
[2023-08-11 06:19] LABS: Anion Gap 8 (5-15); Carbon Dioxide 27 mmol/L (20-30)
[2023-08-11 06:24] LABS: BUN/Creatinine Ratio 8.9 (10.0-20.0); Blood Urea Nitrogen 15 mg/dL (9-23); Glucose 114 mg/dL (74-106)
[2023-08-11] MEDS: POTASSIUM EFFERVESENT TAB 25 MEQ PO ONE (09:06)
[2023-08-11] MEDS: CITALOPRAM HYDROBR 20 MG TAB PO SCH (09:06)
[2023-08-11 14:41] LABS: INR 1.19 (0.9-1.15); Partial Thromboplastin Time 39.7 SEC (24.5-34.5); Prothrombin Time 12.5 sec (9.3-11.8)
[2023-08-11] MEDS: LIDOCAINE 1% (LOCAL ANESTH.) PF 5ml SDV ID PRN (19:36)
[2023-08-12] VITALS (8 sets, daily range): BP systolic 109–137; BP diastolic 52–71; PULSE 90–110; RESP 17–19; TEMP 97.1–98.3; O2SAT 93–99
[2023-08-12] MEDS: PANTOPRAZOLE 40 MG TAB PO SCH (05:29)
[2023-08-12 06:08] LABS: Anion Gap 7 (5-15); Carbon Dioxide 26 mmol/L (20-30); Chloride 105 mmol/L (98-107); Potassium 3.1 mmol/L (3.5-5.1); Sodium 138 mmol/L (136-145)
[2023-08-12 06:09] LABS: Calcium 8.6 mg/dL (8.5-10.1)
[2023-08-12 06:13] LABS: Glucose 131 mg/dL (74-106)
[2023-08-12 06:14] LABS: BUN/Creatinine Ratio 7.3 (10.0-20.0); Blood Urea Nitrogen 13 mg/dL (9-23)
[2023-08-12] MEDS: D5W/SOD CHL 0.45%/KCL 20MEQ 1,000 ML IV SCH (09:50)
[2023-08-12] MEDS: POTASSIUM EFFERVESENT TAB 25 MEQ PO ONE (09:51)
[2023-08-12] MEDS: MORPHINE SULFATE INJ 2 MG/ml SYRG IV PRN (14:39)
[2023-08-12] MEDS: VANCOMYCIN 1GM/200ML 200 ML IV ONE (15:30)
[2023-08-13] VITALS (8 sets, daily range): BP systolic 118–136; BP diastolic 58–78; PULSE 94–105; RESP 16–19; TEMP 97.2–99.3; O2SAT 93–96
[2023-08-13 06:23] LABS: Chloride 107 mmol/L (98-107); Potassium 3.3 mmol/L (3.5-5.1); Sodium 139 mmol/L (136-145)
[2023-08-13 06:24] LABS: Anion Gap 5 (5-15); Calcium 8.6 mg/dL (8.7-10.4); Carbon Dioxide 27 mmol/L (20-30)
[2023-08-13 06:29] LABS: BUN/Creatinine Ratio 6.5 (10.0-20.0); Blood Urea Nitrogen 15 mg/dL (9-23); Glucose 105 mg/dL (74-106)
[2023-08-13] MEDS: D5W/SOD CHL 0.45%/KCL 20MEQ 1,000 ML IV SCH (10:30)
[2023-08-13] MEDS: LINEZOLID 600MG/300ML 300 ML IV SCH (10:40)
[2023-08-13] MEDS: FLORASTOR (S. BOULARDII) 250 MG CAP PO SCH (10:45)
[2023-08-13] MEDS: Ensure Enlive Strawberry 8oz Bottle PO SCH (12:00)
[2023-08-13] MEDS: AMPICILLIN & SULBACTAM SODIUM 3 GM in SODIUM CHL 0.9% 100 ML IV SCH (15:58)
[2023-08-13] MEDS: OLANZapine 5 MG TAB PO PRN (21:18)
[2023-08-13 22:37] LABS: Urine Bacteria None Seen /hpf (None Seen)
[2023-08-13 23:04] LABS: Urine Amorphous Crystal FEW /hpf (None Seen); Urine Blood Negative /uL (Negative); Urine Clarity Clear (Clear); Urine Color Yellow (Yellow); Urine Protein, UAD 1+ (Negative); Urine Specific Gravity 1.018 (1.001-1.035); Urine Sperm PRESENT /hpf (None Seen); Urine Urobilinogen Normal (Negative); Urine WBC <1 /hpf (0 - 3)
[2023-08-14] VITALS (8 sets, daily range): BP systolic 102–131; BP diastolic 51–74; PULSE 78–98; RESP 18–20; TEMP 97.9–98.6; O2SAT 92–98
[2023-08-14] MEDS: DIPHENOXYLATE W/ATROPINE 2.5 MG TAB PO PRN (01:36)
[2023-08-14 08:22] LABS: Basophils # (auto) 0.1 10 ^3/uL (0-0.2); Eosinophils # (auto) 0.4 10 ^3/uL (0-0.8); Hematocrit 18.7 % (41.0-53.0); Lymphocytes # (auto) 0.7 10 ^3/uL (0.4-5.4); Monocytes # (auto) 0.3 10 ^3/uL (0-1.3); White Blood Cell 4.1 10^3/uL (4.4-10.8)
[2023-08-14 08:23] LABS: Basophils % (auto) 1.4 % (0.0-2.0); Eosinophils % (auto) 9.3 % (0.0-7.0); Lymphocytes % (auto) 17.5 % (10.0-50.0); Mean Corpuscular Hemoglobin 30.3 pg (28.0-32.0); Mean Corpuscular Hgb Conc. 32.4 g/dL (32.0-36.0); Mean Corpuscular Volume 93.4 fL (80.0-100.0); Monocytes % (auto) 7.2 % (0.0-12.0); Neutrophils # (auto) 2.7 10 ^3/uL (1.6-8.6); Neutrophils % (auto) 64.6 % (37.0-80.0); Nucleated Red Blood Cells % 0.2 %; Red Cell Distribution Width 19.4 % (11.8-14.3)
[2023-08-14 08:28] LABS: Chloride 107 mmol/L (98-107); Potassium 3.4 mmol/L (3.5-5.1); Sodium 139 mmol/L (136-145)
[2023-08-14 08:29] LABS: Anion Gap 6 (5-15); Carbon Dioxide 26 mmol/L (20-30)
[2023-08-14 08:30] LABS: Calcium 8.2 mg/dL (8.5-10.1)
[2023-08-14 08:34] LABS: BUN/Creatinine Ratio 4.7 (10.0-20.0); Blood Urea Nitrogen 17 mg/dL (9-23); Glucose 103 mg/dL (74-106)
[2023-08-14 08:47] LABS: Hemoglobin 6.1 g/dL (13.5-17.5)
[2023-08-14] MEDS: Nepro With Carbsteady ButterPecan 8oz Carton PO SCH (12:05)
[2023-08-14] MEDS: SOD CHL 0.45% 1,000 ML IV SCH (17:12)
[2023-08-15] VITALS (12 sets, daily range): BP systolic 113–143; BP diastolic 59–80; PULSE 92–105; RESP 16–20; TEMP 97.2–99.2; O2SAT 91–96
[2023-08-15] MEDS: AMPICILLIN & SULBACTAM SODIUM 3 GM in SODIUM CHL 0.9% 100 ML IV SCH (03:00)
[2023-08-15 11:45] LABS: Basophils # (auto) 0.1 10 ^3/uL (0-0.2); Basophils % (auto) 1.3 % (0.0-2.0); Eosinophils # (auto) 0.5 10 ^3/uL (0-0.8); Eosinophils % (auto) 8.4 % (0.0-7.0); Hematocrit 25.3 % (41.0-53.0); Hemoglobin 8.6 g/dL (13.5-17.5); Lymphocytes # (auto) 0.8 10 ^3/uL (0.4-5.4); Lymphocytes % (auto) 13.8 % (10.0-50.0); Mean Corpuscular Hemoglobin 31.4 pg (28.0-32.0); Mean Corpuscular Volume 92.5 fL (80.0-100.0); Monocytes # (auto) 0.4 10 ^3/uL (0-1.3); Monocytes % (auto) 6.8 % (0.0-12.0); Neutrophils # (auto) 4.2 10 ^3/uL (1.6-8.6); Neutrophils % (auto) 69.7 % (37.0-80.0); Nucleated Red Blood Cells % 0.1 %; Red Blood Cells 2.74 10^6/uL (4.5-5.90); Red Cell Distribution Width 18.2 % (11.8-14.3); White Blood Cell 6.1 10^3/uL (4.4-10.8)
[2023-08-15 12:04] LABS: Chloride 106 mmol/L (98-107); Potassium 3.6 mmol/L (3.5-5.1)
[2023-08-15 12:05] LABS: Carbon Dioxide 26 mmol/L (20-30)
[2023-08-15 12:06] LABS: Calcium 8.3 mg/dL (8.5-10.1)
[2023-08-15 12:10] LABS: Blood Urea Nitrogen 12 mg/dL (9-23); Glucose 120 mg/dL (74-106)
[2023-08-15 13:26] LABS: Anion Gap 4 (5-15); Sodium 136 mmol/L (136-145)
[2023-08-15] MEDS: SODIUM CHLORIDE 0.9% 1,000 ML IV SCH (14:22)
[2023-08-16] VITALS (7 sets, daily range): BP systolic 127–165; BP diastolic 60–84; PULSE 94–108; RESP 18–21; TEMP 97.8–98.1; O2SAT 92–100
[2023-08-16 13:50] LABS: Basophils # (auto) 0 10 ^3/uL (0-0.2); Eosinophils # (auto) 0.5 10 ^3/uL (0-0.8); Eosinophils % (auto) 9.4 % (0.0-7.0); Lymphocytes # (auto) 0.8 10 ^3/uL (0.4-5.4); Monocytes # (auto) 0.4 10 ^3/uL (0-1.3); Nucleated Red Blood Cells % 0.2 %; Red Cell Distribution Width 17.9 % (11.8-14.3)
[2023-08-16 13:53] LABS: Basophils % (auto) 0.8 % (0.0-2.0); Hematocrit 25.6 % (41.0-53.0); Hemoglobin 8.5 g/dL (13.5-17.5); Lymphocytes % (auto) 16.1 % (10.0-50.0); Mean Corpuscular Hemoglobin 30.9 pg (28.0-32.0); Mean Corpuscular Hgb Conc. 33.2 g/dL (32.0-36.0); Mean Corpuscular Volume 93.4 fL (80.0-100.0); Monocytes % (auto) 7.6 % (0.0-12.0); Neutrophils # (auto) 3.3 10 ^3/uL (1.6-8.6); Neutrophils % (auto) 66.1 % (37.0-80.0); Red Blood Cells 2.74 10^6/uL (4.5-5.90)
[2023-08-16 14:02] LABS: Chloride 107 mmol/L (98-107); Potassium 3.4 mmol/L (3.5-5.1); Sodium 138 mmol/L (136-145)
[2023-08-16 14:03] LABS: Anion Gap 6 (5-15); Carbon Dioxide 25 mmol/L (20-30)
[2023-08-16 14:04] LABS: Calcium 8.4 mg/dL (8.7-10.4)
[2023-08-16 14:09] LABS: BUN/Creatinine Ratio 4.8 (10.0-20.0); Blood Urea Nitrogen 11 mg/dL (9-23); Glucose 136 mg/dL (74-106)
[2023-08-16] MEDS: POTASSIUM EFFERVESENT TAB 25 MEQ PO ONE (14:47)
[2023-08-17 06:36] LABS: Anion Gap 6 (5-15); Carbon Dioxide 24 mmol/L (20-30); Chloride 109 mmol/L (98-107); Potassium 3.2 mmol/L (3.5-5.1); Sodium 139 mmol/L (136-145)
[2023-08-17 06:37] LABS: Calcium 8.4 mg/dL (8.7-10.4)
[2023-08-17 06:42] LABS: BUN/Creatinine Ratio 3.5 (10.0-20.0); Blood Urea Nitrogen 7 mg/dL (9-23); Glucose 92 mg/dL (74-106)
[2023-08-17 08:00] VITALS: PULSE 100
[2023-08-17 09:00] VITALS: BP 169/66; PULSE 98; RESP 16; TEMP 98.7; O2SAT 94
[2023-08-17 13:00] VITALS: BP 144/88; PULSE 102; RESP 18; TEMP 97.5; O2SAT 95
[2023-08-17 17:00] VITALS: BP 147/67; PULSE 99; RESP 16; TEMP 97.6; O2SAT 96
[2023-08-17 20:00] VITALS: PULSE 102; PULSE 107; RESP 18; O2SAT 97
[2023-08-17 21:00] VITALS: BP 108/70; PULSE 107; RESP 18; TEMP 97.9; O2SAT 97
[2023-08-18] VITALS (8 sets, daily range): BP systolic 141–153; BP diastolic 51–77; PULSE 95–110; RESP 16–20; TEMP 97.8–100.1; O2SAT 91–96
[2023-08-18] MEDS: HYDROcodone-ACET 5/325MG TAB PO PRN (23:45)
[2023-08-18] MEDS: hydrALAZINE HCL 20 MG/ML VL IV PRN (23:56)
[2023-08-19] VITALS (8 sets, daily range): BP systolic 126–169; BP diastolic 64–85; PULSE 101–116; RESP 16–19; TEMP 98.2–99.7; O2SAT 96–97
[2023-08-19] MEDS: ONDANSETRON HCL 4 MG/2 ML VIAL IV PRN (09:42)
[2023-08-19 14:56] LABS: Anion Gap 6 (5-15); Carbon Dioxide 25 mmol/L (20-30); Chloride 107 mmol/L (98-107); Potassium 3.5 mmol/L (3.5-5.1); Sodium 138 mmol/L (136-145)
[2023-08-19 14:57] LABS: Calcium 8.4 mg/dL (8.7-10.4)
[2023-08-19 15:02] LABS: BUN/Creatinine Ratio 5.5 (10.0-20.0); Blood Urea Nitrogen 9 mg/dL (9-23); Glucose 91 mg/dL (74-106)
[2023-08-20 06:08] LABS: Chloride 106 mmol/L (98-107); Potassium 3.5 mmol/L (3.5-5.1); Sodium 138 mmol/L (136-145)
[2023-08-20 06:09] LABS: Anion Gap 5 (5-15); Calcium 8.4 mg/dL (8.5-10.1); Carbon Dioxide 27 mmol/L (20-30)
[2023-08-20 06:14] LABS: BUN/Creatinine Ratio 5.1 (10.0-20.0); Blood Urea Nitrogen 8 mg/dL (9-23); Glucose 114 mg/dL (74-106)
[2023-08-20 08:00] VITALS: PULSE 84; RESP 18
[2023-08-20 09:00] VITALS: BP 114/59; PULSE 113; RESP 18; TEMP 98.3; O2SAT 93
[2023-08-20 12:54] VITALS: BP 155/61; PULSE 104; RESP 20; TEMP 98.1; O2SAT 91
[2023-08-20 17:00] VITALS: BP 168/74; PULSE 104; RESP 18; TEMP 97.7; O2SAT 95
[2023-08-20 20:22] VITALS: PULSE 112; RESP 20
[2023-08-20 21:00] VITALS: BP 136/72; PULSE 112; RESP 20; TEMP 97.7; O2SAT 90
[2023-08-21 01:32] LABS: Protein, Urine 147.3 mg/dL (0.0-11.9)
[2023-08-21 01:34] LABS: Creatinine, Urine 100.77 mg/dL (30.0-125.0); Urine Protein/Creatinine Ratio 1.46
[2023-08-21 08:00] VITALS: PULSE 88; RESP 18
[2023-08-21 11:11] VITALS: BP 131/77; PULSE 111; RESP 19; TEMP 98; O2SAT 92
[2023-08-21 12:40] VITALS: BP 127/56; PULSE 100; RESP 19; TEMP 98; O2SAT 93
[2023-08-21 13:13] VITALS: BP 127/56; PULSE 100; RESP 19; TEMP 98; O2SAT 93
[2023-08-21 14:25] VITALS: BP 127/56; PULSE 100; RESP 18; TEMP 98; O2SAT 93
== END 2023-08-21 14:40 | disposition hospice, inpatient (51) | DRG 871 ==
LOC: ER 19:44 → EDBD 19:44 → TELE 22:51 → DOU IN ICU 07-28 14:49 → TELE-CENTR 08-08 15:29 → CENTRAL 08-19 14:23
PROVIDERS: ADMIT Internal Medicine; ATTEND Nurse Practitioner Acute Care
PROC: 02HV33Z Insertion of Infusion Device into Superior Vena Cava, Percutaneous Approach (ICD-10-PCS; 2023-07-29)
PROC: B548ZZA Ultrasonography of Superior Vena Cava, Guidance (ICD-10-PCS; 2023-07-29)
PROC: 02HV33Z Insertion of Infusion Device into Superior Vena Cava, Percutaneous Approach (ICD-10-PCS; 2023-08-06)
PROC: B548ZZA Ultrasonography of Superior Vena Cava, Guidance (ICD-10-PCS; 2023-08-06)
PROC: 02HV33Z Insertion of Infusion Device into Superior Vena Cava, Percutaneous Approach (ICD-10-PCS; 2023-08-11)
PROC: B548ZZA Ultrasonography of Superior Vena Cava, Guidance (ICD-10-PCS; 2023-08-11)
PROC: 30233N1 Transfusion of Nonautologous Red Blood Cells into Peripheral Vein, Percutaneous Approach (ICD-10-PCS; principal; 2023-08-15)
DX: A41.02 Sepsis due to Methicillin resistant Staphylococcus aureus (principal); G93.41 Metabolic encephalopathy; N17.0 Acute kidney failure with tubular necrosis; J15.212 Pneumonia due to Methicillin resistant Staphylococcus aureus; I47.10 Supraventricular tachycardia, unspecified; L02.01 Cutaneous abscess of face; D64.9 Anemia, unspecified; F03.90 Unspecified dementia, unspecified severity, without behavioral disturbance, psychotic disturbance, mood disturbance, and anxiety; N40.0 Benign prostatic hyperplasia without lower urinary tract symptoms; N18.2 Chronic kidney disease, stage 2 (mild); E11.22 Type 2 diabetes mellitus with diabetic chronic kidney disease; R74.01 Elevation of levels of liver transaminase levels; E66.9 Obesity, unspecified; E83.42 Hypomagnesemia; E86.9 Volume depletion, unspecified; E87.6 Hypokalemia; F32.A Depression, unspecified; I12.9 Hypertensive chronic kidney disease with stage 1 through stage 4 chronic kidney disease, or unspecified chronic kidney disease; F29 Unspecified psychosis not due to a substance or known physiological condition; K62.89 Other specified diseases of anus and rectum; N30.90 Cystitis, unspecified without hematuria; K11.20 Sialoadenitis, unspecified; K40.20 Bilateral inguinal hernia, without obstruction or gangrene, not specified as recurrent; M27.2 Inflammatory conditions of jaws; Z79.1 Long term (current) use of non-steroidal anti-inflammatories (NSAID); Z79.899 Other long term (current) drug therapy; Z79.84 Long term (current) use of oral hypoglycemic drugs; Z51.5 Encounter for palliative care; Z90.49 Acquired absence of other specified parts of digestive tract; Z93.2 Ileostomy status; Z68.31 Body mass index [BMI] 31.0-31.9, adult
CPT/HCPCS: 36415; 36569; 36600; 70450; 70460; 70486; 70487; 71045; 74176; 74178; 76536; 76775; 76937; 80048; 80053; 80202; 81001; 82306; 82378; 82570; 82607; 82728; 82805; 82962; 83540; 83550; 83605; 83735; 83970; 84100; 84154; 84156; 84300; 84443; 84478; 84484; 85007; 85025; 85027; 85610; 85730; 86703; 86850; 86900; 86901; 86920; 87040; 87077; 87081; 87086; 87186; 87205; 87493; 92610; 93005; 96365; 96375; 97110; 97163; 97530; A4565; C9113; G0378; J0131; J1756; J1815; J2185; J2405; J2543; J3480; J3490; J7042; J7131